=== PATIENT | male | born 1935 | race Caucasian/White ===

== ENCOUNTER 2016-04-17 05:49 | Inpatient (IN) | payer MEDICARE ==
[2016-04-17] MEDS ORDERED: NS 0.9% 1000 ML* 1,000 ML IV SCH (06:00)
--- NOTE | 2016-04-17 06:24 | ED ---
Elizabeth Jamil Erika, scribed for Onofre Mathews MD on 04/17/16 at 0601 . GI/ HPI - HPI Summary HPI Summary: Patient is an 81-year-old male brought in from [place] to the [facility] with a CC of abdominal pain starting 04/16/2016. Patient reports that he was in the car with his when he developed abdominal pain. He then became nauseated, and when he arrived home, vomited 4x. Pt was seen at [facility] and diagnosed by CT A/P with an SBO. Pt refused NG tube at [place]. Pt has a Hx SBO. En route by EMS, pt was stable, with BP of 132/73, HR of 72, RR of 18, O2 sat of 91-94% on room air. - History of Current Complaint Time Seen by Provider: 04/17/16 05:59 Stated Complaint: XFER FROM [facility] Hx Obtained From: Patient Onset/Duration: Started Hours Ago, Atraumatic, Still Present Timing: Constant Severity: Moderate Location of Pain: LUQ, LLQ Associated Signs and Symptoms: Positive: Nausea, Vomiting Alleviating Factor(s): Nothing - Additional Pertinent History Primary Care Physician: DEBORAH - Allergy/Home Medications Allergies/Adverse Reactions: Allergies Allergy/AdvReac Type Severity Reaction Status Date / Time Azithromycin [From Zithromax] Allergy Diarrhea Verified 04/26/15 06:25 Home Medications: Home Medications Donepezil TAB* [Aricept TAB*] 10 mg PO DAILY 04/17/16 [History Confirmed ] Finasteride TAB* [Proscar TAB*] 5 mg PO DAILY 04/17/16 [History Confirmed ] Rivaroxaban TAB(*) [Xarelto 20 mg] 20 mg PO DAILY 04/17/16 [History Confirmed ] Tadalafil [Cialis] 10 mg PO DAILY PRN 04/17/16 [History Confirmed 04/17/16] Triamcinolone 0.5% CREAM(NF) [Triamcinolone 0.5% CREAM*] 1 applic TOPICAL BID [History Confirmed 04/17/16] PMH/Surg Hx/FS Hx/Imm Hx Cardiovascular History: Reports: Hx Hypertension Musculoskeletal History: Reports: Hx Arthritis - OSTEOARTHRITIS Sensory History: Reports: Hx Contacts or Glasses - GLASSES Denies: Hx Hearing Aid Opthamlomology History: Reports: Hx Contacts or Glasses - GLASSES Neurological History: Reports: Other Neuro Impairments/Disorders - MEMORY LOSS - Surgical History Surgery Procedure, Year, and Place: BILATERAL FEET SURGERY,. RIGHT HAND SURGERY DUPUYTREN'S CONTRACTURE, Hx Anesthesia Reactions: No - Family History Family History: Denies FHx malignant hyperthermia, anesthesia reaction - Social History Lives: With Family Alcohol Use: Daily Alcohol Amount: WINE OR BEER Substance Use Type: Reports: None Hx Tobacco Use: Yes Smoking Status (MU): Former Smoker Type: Cigarettes Amount Used/How Often: 1 PPD Have You Smoked in the Last Year: No Review of Systems Negative: Fever Positive: Abdominal Pain, Vomiting, Nausea All Other Systems Reviewed And Are Negative: Yes Physical Exam Triage Information Reviewed: Yes Vital Signs On Initial Exam: Initial Vitals Temp Pulse Resp BP Pulse Ox 98.9 F 81 14 143/67 92 04/17/16 05:51 04/17/16 05:51 04/17/16 05:51 04/17/16 05:51 04/17/16 05:51 Vital Signs Reviewed: Yes Appearance: Positive: Well-Appearing, No Pain Distress Head/Face: Positive: Normal Head/Face Inspection Eyes: Positive: JULIA ENT: Positive: Hearing grossly normal Neck: Positive: Supple Respiratory/Lung Sounds: Positive: Clear to Auscultation, Breath Sounds Present Cardiovascular: Positive: Normal Abdomen Description: Positive: No Organomegaly, Soft, Distended - mild Bowel Sounds: Positive: Present Neurological: Positive: Sensory/Motor Intact Psychiatric: Positive: Normal Diagnostics - Vital Signs Vital Signs Temp Pulse Resp BP Pulse Ox 04/17/16 05:51 98.9 F 81 14 143/67 92 - Laboratory Result Diagrams: 04/17/16 07:00 04/17/16 07:00 Lab Statement: Any lab studies that have been ordered have been reviewed, and results considered in the medical decision making process. GIGU Course/Dx - Diagnoses Provider Diagnoses: SBO (small bowel obstruction) - Physician Notifications Instructed by Provider To: Admit As Inpatient Discharge - Discharge Plan Condition: Fair Disposition: ADMITTED TO [facility] documentation as recorded by the Elizabeth venegas Erika accurately reflects the service I personally performed and the decisions made by Bisi hall David, MD.
[2016-04-17 07:14] LABS: Hematocrit 38 % (42-52); Mean Corpuscular HGB Conc 34 g/dl (31-36); Mean Corpuscular Hemoglobin 32 pg (27-31); Mean Corpuscular Volume 94 fL (80-94); Mean Platelet Volume 9 um3 (7.4-10.4); Red Blood Count 4.05 10^6/ul (4.0-5.4); Red Cell Distribution Width 16 % (10.5-15); White Blood Count 8.5 10^3/ul (3.5-10.8)
[2016-04-17] MEDS ORDERED: Ondansetron INJ* 2 MG/ML VIAL IV PRN (07:31)
[2016-04-17 08:26] LABS: Albumin 3.4 g/dL (3.2-5.2); Calcium 7.9 mg/dL (8.6-10.3); EGFR African American 116.3 (>60); EGFR Non-African American 90.4 (>60); Globulin 2.1 g/dL (2-4); Potassium 3.4 mmol/L (3.5-5.0); Total Bilirubin 0.4 mg/dL (0.2-1.0); Total Protein 5.5 g/dL (6.4-8.9)
[2016-04-17] MEDS ORDERED: Morphine INJ* 2 MG/ML 1 ML CARPUJECT IV PRN ×2 (09:30)
[2016-04-17] MEDS: NS 0.9% w/ 20 Meq KCL 1000 ML* 1,000 ML IV SCH ×2 (09:49→19:48)
[2016-04-17] MEDS ORDERED: Acetaminophen TAB* 325 MG PO PRN (11:28)
[2016-04-17 12:10] LABS: C Reactive Protein 14.62 mg/L (< 5.00)
[2016-04-17] MEDS: Pantoprazole IV* 40 MG IV SCH (13:11)
[2016-04-17] MEDS: Heparin VIAL(*) 5000 UNITS/ML VIAL (FIVE THOUSAND) SUBCUT SCH ×2 (13:12→22:19)
[2016-04-17] MEDS: KCL 10 MEQ/50 ML IVPREMIX* 10 MEQ/50 ML BAG IV SCH ×3 (13:12→15:44)
--- NOTE | 2016-04-17 16:59 | HP ---
HISTORY AND PHYSICAL: DATE OF ADMISSION: 04/17/16 PRIMARY CARE PROVIDER: Dr. Eason. ATTENDING PHYSICIAN WHILE IN THE HOSPITAL: Dr. Dixon Sahu *(report dictated by Vaibhav Beverly NP) CONSULTING SURGEON: Dr. Beaver. CHIEF COMPLAINT: 1. Nausea. 2. Vomiting. 3. Generalized abdominal pain. HISTORY OF PRESENTING ILLNESS: Mr. Mueller is an 81-year-old male patient who has a history of hypertension, AFib, PE after surgery, history of SBO in the past, history of mild dementia, and pancreatitis, comes in to the hospital today after being transferred from [facility] for complaints of nausea, vomiting, and abdominal discomfort. Says he was on his way to a wake in [place] when he noticed by the time he got to [place], he was feeling very nauseated. He was having diffuse abdominal discomfort. He turned around and went home because he felt that he could not make to wake, so he went home, he got back to his shop, and he started vomiting. This was in the mid afternoon time. He vomited several times. He continued to vomit throughout the evening and in the early nighttime hours. His got home around 9:30 and saw that he was vomiting up some brown type discolored vomit. She was concerned because the symptoms were very similar to his previous episode with an SBO and so he decided to come into the ER at [place] and then he was transferred here for surgical evaluation. The patient denies having any recent fevers, denies having any diarrhea. Says the morning before this happened yesterday, he was up taking off Rajeev lights. He did not have any chest pain. He had no shortness of breath. No fevers recently. He has had no respiratory symptoms or any URI symptoms and he had no abdominal symptoms prior to yesterday as well. Again, he was evaluated, found to have that SBO and he was transferred to the hospital and we were asked to evaluate for admission. PAST MEDICAL HISTORY: Significant for: 1. Hypertension. 2. AFib. 3. History of PE. 4. SBO. 5. Dementia. 6. Pancreatitis. PAST SURGICAL HISTORY: He has had a total knee replacement. MEDICATIONS: Home medications include: 1. Naproxen 220 mg p.o. daily as needed. 2. Cialis 10 mg daily as needed. 3. Proscar 5 mg daily. 4. Xarelto 20 mg daily. 5. Aricept 10 mg daily. 6. Cod liver oil 1 capsule daily. 7. Cardizem 360 mg p.o. daily. 8. Aspirin 81 mg daily. 9. Triamcinolone cream 1 application topically b.i.d. ALLERGIES TO MEDICATIONS: ERYTHROMYCIN. FAMILY HISTORY: His mother at the age of 96, father had a history of CVA. SOCIAL HISTORY: He is a former smoker. He does drink 1 to 2 glasses of wine daily. He is , has children. Surrogate decision maker is his , Ольга. REVIEW OF SYSTEMS: There is no documented fever. He denied having any significant weight change. There was no double vision. There is no ear discharge. There is no rhinorrhea. There is no sore throat, no thyroid enlargement. He denies having any chest discomfort. There is no abdominal pain currently, that was prior. There was no orthopnea or nocturnal dyspnea. There was nausea and vomiting. No dysuria. No frequency. He had no loss of consciousness, no pruritus, and no skin ulcerations. Review of 14 systems completed, all others negative. PHYSICAL EXAMINATION GENERAL: At this time, Mr. Mueller is an 81-year-old male patient, who appears well-nourished and well-developed. He does not appear to be in any acute distress. He is sitting in the surgical bed. VITAL SIGNS: Reveals blood pressure of 110/85, pulse is 69, respirations 18, O2 sat 95%, and temperature 98.3. HEENT: Head is atraumatic and normocephalic. Eyes: EOMs are intact. Sclerae anicteric and not pale. Throat: Oral mucosa appears to be moist. No oropharyngeal erythema. NECK: Supple. LUNGS: Clear to auscultation bilaterally. No wheezes, rales, or rhonchi. HEART: Sounds S1 and S2. Regular rate and rhythm. No murmurs, rubs, or gallops. ABDOMEN: Soft, it was flat. It is nontender at this point. Bowel sounds were hypoactive. EXTREMITIES: Pulses 2+ throughout. Able to move all 4 extremities with 5/5 strength. NEUROLOGIC: He is awake, alert, and oriented x3. No gross focal deficits. SKIN: Intact. DIAGNOSTIC STUDIES/LAB DATA: Today revealed a WBC of 8.5, RBC of 4.05, hemoglobin 13.0, hematocrit 38, platelet count of 188. Sodium is 140, potassium is 3.4, chloride of 104, bicarb 29, BUN 18, creatinine of 0.82, glucose 125, calcium 7.9. AST 12, ALT 12, alk phos 50. Albumin 3.4. He did have an EKG obtained as well today which showed a normal sinus rhythm, rate of 79, did have a PAC, but no ST elevations or T-wave inversions were noted. He had imaging at [place], I have the report, with an impression findings suggestive of obstruction of the proximal small bowel with marked distention of the duodenal sweep. Old medical records reviewed. ASSESSMENT AND PLAN: Mr. Mueller is an 81-year-old male patient coming into the hospital today from [facility] in transfer for complaints of nausea and vomiting, now found to have small bowel obstruction. He will be admitted under inpatient status for: 1. Small bowel obstruction. Etiology is unclear. He has never had procedures before. At this point, he is no longer having any nausea or vomiting and appears to be stable. I think we can hold off an NG tube. His abdominal exam appears to be fairly benign, but I will have Surgery evaluate the patient. If he should have any more nausea or vomiting, then I will consider putting the NG tube in. At this point, we will await surgical evaluation, may need to consider GI evaluation as he again has never had any abdominal surgeries, may be beneficial to do an upper GI series possibly, but again I will wait for surgical input and evaluation. 2. Atrial fibrillation, he is in sinus rhythm currently. I am going to hold off on the Xarelto for the time being and he is in sinus rhythm. When he is able to take p.o., we will restart his diltiazem. 3. History of pulmonary embolism. He will be on heparin subcu. 4. History of dementia. Continue with supportive care. 5. History of pancreatitis. Not an active issue. 6. DVT prophylaxis, he is high risk. He has been placed on SCDs and heparin subcu. 7. Code status, full code. 8. Fluids, electrolytes, and nutrition. He is n.p.o. for the time being. He does have normal saline going out 100 an hour. I will continue this and I will replace his potassium. TIME SPENT: On admission 60 minutes, greater than half the time [id number] with the patient obtaining my history and physical, other half the time spent going over the plan of care with the patient and implementing the plan of care. I did discuss the plan of care with my attending, Dr. Sahu; he is in agreement. VAIBHAV BEVERLY NP CC: Dr. Eason; Dr. Beaver * [id number]/CPS #: [id number] MTDD
--- NOTE | 2016-04-17 23:00 | CONS ---
CONSULTATION REPORT: DATE OF CONSULT: 04/17/16 ATTENDING PHYSICIAN: Onofre Beaver MD REASON FOR CONSULTATION: Small-bowel obstruction. HISTORY OF PRESENT ILLNESS: The patient is an 81-year-old male, who began to notice some severe nausea and abdominal discomfort coming back from a wake in [place] yesterday. He vomited at home with coffee-ground dark brown emesis, his reports possibly some blood in it. The patient denies any NSAID use but does take an aspirin and is on anticoagulation with Xeralto. He had a CT scan at that time, which demonstrated a proximal small bowel obstruction at the level of the duodenum. The patient was noted to have projectile vomitus and felt significantly better after vomiting. The patient reports he had a similar episode he believes in February 2016 with complaints of a very similar episode of severe nausea, vomiting and was diagnosed and admitted with a small bowel obstruction, which was self-limited and relieved with NG tube decompression. He reports the obstruction point was near the belly-button. He did not require surgery for this. He believes he has another episode now. His last bowel movement was at 10 a.m. yesterday and he has not passed gas since then. He denies any fever or chills. He denies any current nausea or vomiting. Denies any chest pain or shortness of breath. He says he could probably eat something right now. When talking with his , she notes that he almost every day after lunch reports "I ate too much." The patient says he eats fairly large meals but the disagrees. He has some discomfort, which will gradually resolve. He has never had an endoscopy and had a colonoscopy maybe 10 or 20 years ago; his primary care physician instructed he does not need another colonoscopy. PAST MEDICAL HISTORY: Bilateral PEs, currently on Xarelto, atrial fibrillation , skin cancer on right lower leg, history of small-bowel obstruction as noted above. He had right knee replacement, bilateral foot surgeries. CURRENT MEDICATIONS: Please refer to history and physical. ALLERGIES: He has diarrhea with AZITHROMYCIN. FAMILY HISTORY: Dad had stroke. Mom was fairly healthy, lived into her 90s. Brother from alcohol related issues. The patient denies family history of reaction to anesthesia or bleeding disorder. 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 He quit smoking 30 years ago and smoked 1 to 2 packs a day from his teens to his 50s. He drinks alcohol probably a couple of drinks a day. Functional status: He exercises regularly and goes to the gym. REVIEW OF SYSTEMS: General: He has had a fair amount of decreased energy since being diagnosed with PE earlier this year. He had knee surgery he thinks in June and then developed a bilateral PE related to this. He does report some weight loss, he was down to 150 from 177, he is currently measured at 170. Cardiovascular: Positive for AFib. He does exercise regularly. Genitourinary : He gets up about 3 times a night to urinate and sees a urologist and is on multiple urologic-related medications. Denies any kidney stones, any kidney problems, bladder problems, prostate problems, UTIs. GI: He has never had any problems with diarrhea or constipation, never had any abdominal surgery or other small-bowel obstructions, hernias. Endocrine: Denies any diabetes or thyroid problems. Musculoskeletal: He had a right knee replacement. Neurologic: Denies any tingling, burning, numbness, or weakness. Psychologic: Denies any psychological problems. Hematologic: He does bruise quite easily related to Xarelto use. Infectious Disease: Denies any recent infection or others sick around him. PHYSICAL EXAM: The patient is a fairly well-appearing older male lying in bed in no acute distress. Vital Signs: Temperature 98.0, pulse 62, respiratory rate 18, O2 sat 92% on room air, blood pressure 124/59. HEENT: Normocephalic, atraumatic. No scleral icterus. Trachea midline. Cardiovascular: Regular rate and rhythm. No appreciable murmurs, rubs, or gallops. Lungs: Clear to auscultation bilaterally. No wheezing, rhonchi, or rales. Abdomen: Soft, thin , nondistended. Hyperactive bowel sounds throughout. Mild tenderness to palpation in right and left lower quadrants and possibly periumbilically. No guarding, no rebound. No masses, no organomegaly. Nontender to deep palpation of the upper abdomen. Skin: He has a 2 cm x 2 cm raised fixed nodule of the right lateral calf. There is another lesion inferior to this. Again, it is nodular in appearance, fixed. There is some central necrosis to the larger of these and some mild pain to palpation. No evidence of erythema or cellulitis. IMAGING: CT scan from [facility] on 04/17/16: Stomach appears distended by retained fluid and gas. There also appears to be distention of the duodenal sweep proximal to the third portion of the duodenum. Small stable right renal cyst is seen. No oral contrast was tolerated. LABS: Hemoccult is positive. Hgb 13.0, HCT 38, WBC 8.5, Neut % 82.7, CRP 14.62 ASSESSMENT AND PLAN: The patient is an 81-year-old male admitted with a proximal small-bowel obstruction likely in the duodenum. I would recommend a consultation with GI for a possible upper endoscopy, especially in light of his coffee-ground emesis. Currently he is not feeling nauseous or bloated, therefore we will defer NG tube placement until he develops symptoms. He does not have a surgical abdomen currently. We will continue him on IV fluids. This may be a self-limited episode given his previous history of this. Skin cancer. I discussed with the patient his followup plan for this and he is going to see a floral designer salesperson in June. I recommended since he is now having some symptoms that he may benefit from earlier therapy and he can follow up with the [facility] office as an outpatient for this. We will recheck labs in the morning & plan to obtain an upper GI study. AKIN MICHAELS CC: Dr. Cruz Kwok; Dr. Ade Eason; Dr. Beaver * [id number]/[facility] #: [id number] [facility]
[2016-04-18] MEDS: Heparin VIAL(*) 5000 UNITS/ML VIAL (FIVE THOUSAND) SUBCUT SCH ×3 (05:50→21:15)
[2016-04-18] MEDS: NS 0.9% w/ 20 Meq KCL 1000 ML* 1,000 ML IV SCH (05:55)
[2016-04-18 08:10] LABS: Hematocrit 37 % (42-52); Hemoglobin 12.5 g/dl (14.0-18.0); Mean Corpuscular HGB Conc 34 g/dl (31-36); Mean Corpuscular Hemoglobin 32 pg (27-31); Mean Corpuscular Volume 95 fL (80-94); Mean Platelet Volume 9 um3 (7.4-10.4); Red Cell Distribution Width 16 % (10.5-15); White Blood Count 6.4 10^3/ul (3.5-10.8)
[2016-04-18 08:22] LABS: BUN/Creatinine Ratio 15.1 (8-20); Calcium 7.8 mg/dL (8.6-10.3); EGFR African American 100.5 (>60); EGFR Non-African American 78.2 (>60); Potassium 4.2 mmol/L (3.5-5.0)
--- NOTE | 2016-04-18 10:11 | RAD ---
HISTORY: Vomiting, SMA syndrome, proximal duodenal obstruction, hematemesis COMPARISONS: Outside CT dated April 17, 2016 TECHNIQUE: A double contrast fluoroscopic study was performed of the esophagus and upper GI tract. Effervescent granules and thin and thick liquid barium were administered under fluoroscopic observation. Multiple digital spot images were obtained. Total fluoroscopy time is 1.6 minutes. FINDINGS: COREROOM FOUNDRY LABORER: There is a nonspecific bowel gas pattern. Oral contrast is noted in the distal colon. Degenerative changes are noted of the spine. ESOPHAGUS: The esophagus is normal in contour, course, and caliber. There is no stricture or web. Contrast passes easily through the gastroesophageal junction into the stomach. There are occasional tertiary nonpropulsive contractions. STOMACH: The stomach is normally distensible. There is a normal gastric mucosal pattern, without ulceration or filling defect. Contrast passes easily through the pylorus into the duodenum. No reflux was elicited on the current examination. DUODENUM: There is a 2 cm diverticulum of the second stage of the duodenum. The duodenal dilatation noted on the previous examination is not evident on the current examination. The fourth stage of the duodenum does not cross to the left of midline. SMALL BOWEL: The visualized portions small bowel is unremarkable. IMPRESSION: DEGENERATIVE DIVERTICULA. MILD PRESBYESOPHAGUS. THE DUODENAL DILATATION NOTED ON THE PREVIOUS CT EXAMINATION IS NOT EVIDENT ON THE CURRENT EXAMINATION. THE PREVIOUS CT EXAMINATION HAS FEATURES SUGGESTIVE OF MIDGUT VOLVULUS. THE FOURTH STAGE OF THE DUODENUM DOES NOT CROSS MIDLINE WHICH MAY INDICATE THE PRESENCE OF SOME DEGREE OF MALROTATION CPT II Codes: 6045F
[2016-04-18] MEDS: Pantoprazole IV* 40 MG IV SCH (14:10)
--- NOTE | 2016-04-18 14:10 | PN ---
Progress Note - Progress Note SOAP: Subjective: Feeling well today no abdominal pain since admission hungry- having clears for lunch no nausea/ vomiting passing sm amt of flatus, no BM ambulating w/o difficulty Objective: A&O answers question appropriately, VSS, afebrile Heart: RRR no m/r/g Lungs: CTA julito throughout besides R middle lobe- some crackles Abd: Soft, non-distended ++BS throughout non-tender to palpation throughout no guarding/rebound Extr: calves NT to palpation, no erythema or swelling R leg tumor to lateral calf Vital Signs Temp 97.6 F 04/18/16 12:09 Pulse 59 04/18/16 12:09 Resp 18 04/18/16 12:09 BP 141/69 04/18/16 12:09 Pulse Ox 96 04/18/16 12:09 Intake & Output 04/17/16 04/18/16 04/18/16 18:59 06:59 18:59 Intake Total 659 2063 Output Total 300 175 Balance 659 1763 -175 Weight 170 lb Intake: IV Fluids 495 1947 NS 20K 1947 IVPB 164 116 Potassium 2 gram 164 116 Oral 0 0 Output: Urine 300 175 Other: Estimated Void Large Small # Voids 1 1 UGI Study 04/18: No obstruction, appearance of midgut volvulus on CT scan from prior day Assessment/ Plan: Pt is an 81 yo M who presented with a proximal SBO (duodenum) . His obstruction has since resolved as demonstrated on upper GI study this am. His pain and N/V have self-resolved. He possibly has an intermittent volvulus vs SMA syndrome (less likely because the duodenum does not appear to pass behind the SMA on CT scan). Begin clear liquids NPO after MN con't IVF plan for endoscopy 04/19, appreciate GI input to review CT scan/ imaging with radiology Con't to [facility]
--- NOTE | 2016-04-18 19:57 | CONS ---
CONSULTATION REPORT: DATE OF CONSULTATION: 04/18/16 REASON FOR CONSULTATION: Abdominal pain, bowel obstruction, nausea, vomiting. NARRATIVE: Mr. Mueller is an 81-year-old gentleman with a history of mild dementia and atrial fibrillation. He presented acutely with abdominal pain and repeated episodes of nausea and vomiting. This occurred after coming back from a wake in [place]. His symptoms developed rather suddenly. He had significant amount of vomiting and presented to the [facility] where he had a CT scan, which demonstrated evidence of an obstruction at the level of the duodenum. He was transferred to our facility. By the following day this morning, he states that he is now asymptomatic. He is passing flatus but has not had a bowel movement. He states that he had a very similar episode years back and was treated conservatively for a bowel obstruction. He had no abdominal surgeries. PAST MEDICAL HISTORY: Includes: 1. Mild dementia. 2. Hypertension. 3. AFib. 4. Postoperatively after an extremity surgery, he had a PE. HOME MEDICATIONS: 1. Proscar. 2. Xarelto. 3. Aricept. 4. Cardizem. 5. Baby aspirin. REVIEW OF SYSTEMS: He denies any rectal bleeding, bowel irregularities. He states that he felt well up until this point. He has had no fevers, chills, or jaundice. PHYSICAL EXAMINATION: General: He is a pleasant elderly gentleman, appearing comfortable and in no acute distress. Vital Signs: Temperature is 98.1, blood pressure is 133/62, heart rate is 63 and irregular. He is a anicteric. He is not pale. His lungs are clear. Cardiac exam reveals an irregular rhythm without murmur. Abdomen: Reveals no distension or tenderness. Bowel sounds are hypoactive, but present. There is no succussion splash. There is no organomegaly. Extremities reveal no edema. LABORATORY DATA: Include white count 6.4, hemoglobin 12.5. Normal liver panel. He also underwent a CAT scan of the abdomen, which I did review, demonstrating dilated stomach and duodenum to the 3rd to 4th portion. He has a question of volvulus perhaps or an intussusception in the mid gut. He also underwent an upper GI series today, which was essentially unremarkable. IMPRESSION: An 81-year-old gentleman with recurrent small bowel obstruction in the mid gut, perhaps in the duodenum. I did review his CAT scan and there is a question of a volvulus or an intussusception. It does seem to have resolved. We were planning on performing an upper endoscopy today to better view luminally any abnormality but the patient unfortunately did have a GI series, which precluded that to being done today and will pursue that tomorrow. The surgical service has been involved. CC: Dr. Eason* [id number]/[facility] #: [id number] MTDD
--- NOTE | 2016-04-18 21:57 | PN ---
Subjective Date of Service: 04/18/16 Interval History: . doing ok today no NGT - actually + appetite GI saw patient and reviewed upper GI study - will go EGD tomorrow, given barium use today. clears in the meantime holding [facility] Surgery teams and involved. Family History: Unchanged from Admission Social History: Unchanged from Admission Past Medical History: Unchanged from Admission Objective Active Medications: . Acetaminophen (Tylenol Tab*) 650 mg PO Q4H PRN PRN Reason: FEVER/PAIN Heparin Sodium (Porcine) (Heparin Vial(*)) 5,000 units SUBCUT Q8HR [facility] Last Admin: 04/18/16 21:15 Dose: 5,000 units Potassium Chloride/Sodium Chloride (Ns 0.9% W/ 20 Meq Kcl 1000 Ml*) 1,000 mls @ 100 mls/hr IV PER RATE [facility] Last Admin: 04/18/16 05:55 Dose: 100 mls/hr Morphine Sulfate (Morphine Inj (Syringe)*) 2 mg IV Q4H PRN PRN Reason: PAIN - MODERATE TO SEVERE Ondansetron HCl (Zofran Inj*) 4 mg IV Q4H PRN PRN Reason: NAUSEA Last Admin: 04/17/16 08:17 Dose: 4 mg Pantoprazole Sodium (Protonix Iv*) 40 mg IV Q24H [facility] Last Admin: 04/18/16 14:10 Dose: 40 mg . Vital Signs 04/17/16 04/17/16 04/18/16 22:25 23:29 01:06 Temperature 98.1 F Pulse Rate 63 Respiratory 16 16 Rate Blood Pressure 133/64 (mmHg) O2 Sat by Pulse 94 95 Oximetry 04/18/16 04/18/16 04/18/16 03:36 07:36 08:00 Temperature 97.6 F 97.9 F Pulse Rate 60 63 Respiratory 16 18 16 Rate Blood Pressure 129/58 145/69 (mmHg) O2 Sat by Pulse 92 96 94 Oximetry Oxygen Devices in Use Now: Nasal Cannula Appearance: elderly / good spirits Eyes: No Scleral Icterus Ears/Nose/Mouth/Throat: Clear Oropharnyx Neck: Trachea Midline Respiratory: Symmetrical Chest Expansion and Respiratory Effort Cardiovascular: NL Sounds; No Murmurs; No JVD Abdominal: - - soft, NT + BS Lymphatic: No Cervical Adenopathy Extremities: No Edema Skin: No Rash or Ulcers Neurological: Alert and Oriented x 3 Lines/Tubes/Other Access: Clean, Dry and Intact Peripheral IV Nutrition: Taking PO's Result Diagrams: 04/18/16 07:30 04/18/16 07:30 Assess/Plan/Problems-Billing . Assessment: 81 yo man with upper GI SBO - now seems to have resolved. Older radiology tests in similar situation are suggestive for previous volvulus. EGD tomorrow with GI On clears // NPO after MN Holding Anticoagulation gentle IVF. PPI DVT PPX
[2016-04-19] MEDS: NS 0.9% w/ 20 Meq KCL 1000 ML* 1,000 ML IV SCH ×2 (04:03→21:33)
[2016-04-19] MEDS: Heparin VIAL(*) 5000 UNITS/ML VIAL (FIVE THOUSAND) SUBCUT SCH ×3 (05:52→21:32)
--- NOTE | 2016-04-19 08:46 | PN ---
Subjective Date of Service: 04/19/16 Interval History: Pt is feeling well. He is anxious to get the endoscopy done so h e can eat. He denies any N/V/abdominal pain. He has still not had a BM but has been passing flatus. Objective Active Medications: Acetaminophen (Tylenol Tab*) 650 mg PO Q4H PRN PRN Reason: FEVER/PAIN Heparin Sodium (Porcine) (Heparin Vial(*)) 5,000 units SUBCUT Q8HR [facility] Last Admin: 04/19/16 05:52 Dose: 5,000 units Potassium Chloride/Sodium Chloride (Ns 0.9% W/ 20 Meq Kcl 1000 Ml*) 1,000 mls @ 100 mls/hr IV PER RATE [facility] Last Admin: 04/19/16 04:03 Dose: 100 mls/hr Morphine Sulfate (Morphine Inj (Syringe)*) 2 mg IV Q4H PRN PRN Reason: PAIN - MODERATE TO SEVERE Ondansetron HCl (Zofran Inj*) 4 mg IV Q4H PRN PRN Reason: NAUSEA Last Admin: 04/17/16 08:17 Dose: 4 mg Pantoprazole Sodium (Protonix Iv*) 40 mg IV Q24H [facility] Last Admin: 04/18/16 14:10 Dose: 40 mg Vital Signs 04/18/16 04/18/16 04/18/16 12:09 15:24 18:12 Temperature 97.6 F 98.1 F Pulse Rate 59 63 Respiratory 18 16 16 Rate Blood Pressure 141/69 133/62 (mmHg) O2 Sat by Pulse 96 94 Oximetry 04/18/16 04/18/16 04/19/16 19:25 23:30 03:30 Temperature 97.5 F 97.9 F 98.1 F Pulse Rate 74 66 49 Respiratory 16 16 16 Rate Blood Pressure 139/56 134/65 104/52 (mmHg) O2 Sat by Pulse 93 95 92 Oximetry 04/19/16 04/19/16 07:34 07:42 Temperature 97.8 F Pulse Rate 56 Respiratory 18 18 Rate Blood Pressure 137/72 (mmHg) O2 Sat by Pulse 95 Oximetry Oxygen Devices in Use Now: None Appearance: Elderly male sitting up in bed, NAD Eyes: No Scleral Icterus Ears/Nose/Mouth/Throat: Mucous Membranes Moist Respiratory: Symmetrical Chest Expansion and Respiratory Effort, Clear to Auscultation - few coarse bibasilar crackles Cardiovascular: NL Sounds; No Murmurs; No JVD, RRR, No Edema Abdominal: NL Sounds; No Tenderness; No Distention Extremities: No Clubbing, Cyanosis Skin: No Rash or Ulcers, No Nodules or Sclerosis Neurological: Alert and Oriented x 3 Result Diagrams: 04/18/16 07:30 04/18/16 07:30 Assess/Plan/Problems-Billing Mr Mueller is an 81 yo M who has a h/o HTN, afib, mild dementia and past h/o SBO who presented to [place] [facility] initially with c/o N/V and abdominal pain and was found to have a proximal small bowel obstruction and was [place] [facility]. - Patient Problems (1) Small bowel obstruction Current Visit: Yes Status: Acute Code(s): K56.69 - OTHER INTESTINAL OBSTRUCTION SNOMED Code(s): 910172689 Comment: Etiology of the SBO is not completely clear but suspected to be related to possible midgut volvulus or intussuception (questioned on CT imaging ) as he has never had any abdominal surgeries. His SBO has resolved at this point. Plan is for EGD today. If EGD without any significant findings will start diet back. He had been tolerating clears yesterday. (2) Afib Current Visit: Yes Status: Chronic Code(s): I48.91 - UNSPECIFIED ATRIAL FIBRILLATION SNOMED Code(s): 58865517 Comment: He is in NSR. Xarelto and diltiazem have been on hold given his previous NPO status. If EGD ok will plan on starting xarelto but continue to hold diltiazem as his HR is low normal to bradycardic currently. (3) Hypertension Current Visit: Yes Status: Acute Code(s): I10 - ESSENTIAL (PRIMARY) HYPERTENSION SNOMED Code(s): 00587957 Comment: BP is under good control without the diltiazem. Continue to monitor. (4) DVT prophylaxis Current Visit: No Status: Acute Code(s): JTE7487 - SNOMED Code(s): 457173965 Comment: SQ heparin until xarelto resumed. (5) Full code status Current Visit: Yes Status: Acute Code(s): Z78.9 - OTHER SPECIFIED HEALTH STATUS SNOMED Code(s): 839408576
[2016-04-19] MEDS: Pantoprazole IV* 40 MG IV SCH (12:05)
[2016-04-19] MEDS ORDERED: Midazolam* 1 MG/ML 10 ML VIAL (10 MG) ONE (12:40)
[2016-04-19] MEDS ORDERED: fentaNYL* 50 MCG/ML 2 ML VIAL (100 MCG VIAL) ONE ×2 (12:40→17:14)
[2016-04-19] MEDS ORDERED: ceFAZolin 2 GM PREMIX (*) 2 GM/50 ML BAG IVPB ONE ×2 (15:55→15:56)
[2016-04-19] MEDS ORDERED: Bupivacaine 0.25% EPI 200,000* 30 ML SDV ONE (16:05)
[2016-04-19] MEDS ORDERED: Succinylcholine* 20 MG/ML 10 ML VIAL ONE (16:21)
[2016-04-19] MEDS ORDERED: Propofol* 10 MG/ML 20 ML BTL IV PUSH ONE ×2 (16:21→16:23)
[2016-04-19] MEDS ORDERED: nitroGLYCERIN IV VIAL* 5 MG/ML VIAL ONE (17:04)
[2016-04-19] MEDS ORDERED: Labetalol IV* 5 MG/ML 20 ML VIAL ONE (17:11)
[2016-04-19] MEDS ORDERED: Rocuronium* 10 MG/ML VIAL ONE (17:20)
[2016-04-19] MEDS ORDERED: Neostigmine Methylsulfate* 2 MG/2 ML SYRINGE ONE (17:20)
[2016-04-19] MEDS ORDERED: Glycopyrrolate IV* 0.2 MG/ML 1 ML VIAL ONE (17:20)
[2016-04-19] MEDS ORDERED: oxyCODONE/Acetamin 5/325 MG* TAB PO PRN (17:54)
[2016-04-19] MEDS ORDERED: DiMENhydriNATE IV* 50 MG/ML VIAL IV PUSH PRN (17:56)
[2016-04-19] MEDS ORDERED: fentaNYL* 50 MCG/ML 2 ML VIAL (100 MCG VIAL) IV PRN (17:56)
[2016-04-19] MEDS ORDERED: Morphine INJ* 2 MG/ML 1 ML CARPUJECT IV PRN (18:01)
[2016-04-20] MEDS: Heparin VIAL(*) 5000 UNITS/ML VIAL (FIVE THOUSAND) SUBCUT SCH (06:41)
--- NOTE | 2016-04-20 08:18 | PRO ---
PROCEDURE REPORT: DATE OF PROCEDURE: 04/19/16 REFERRING PHYSICIAN: Dr. Sahu. PROCEDURE: EGD. INDICATION: Small bowel obstruction, question of duodenal torsion. MEDICATIONS GIVEN: 1. No Demerol. 2. Versed 6 mg IV. DESCRIPTION OF PROCEDURE: After the EGD procedure including the risks, benefits , and alternatives not limited to perforation, surgery, and/or were explained to the patient, written consent was then obtained. IV medication was given and a bite-block was placed between the teeth. An Olympus gastroscope was then inserted into the patient's mouth, advanced down the esophagus, into the stomach, into the distal duodenum. In the esophagus at the GE junction, the Z-line was intact. No erosive esophagitis, stricture, or ring was seen. He does have a small hiatal hernia. Scope was advanced through the hiatal hernia sac into the body of the stomach. Retroflex view was unremarkable. Forward view also was unremarkable. An H. pylori biopsy was obtained. Scope was advanced through a widely patent pylorus into the duodenal bulb and into the third, potentially the fourth, portion of the duodenum. No abnormalities were seen. Mucosa appeared normal. There appeared to be no change in the caliber of his lumen. The scope was then withdrawn from the patient. He tolerated the procedure well and was returned to the recovery room in stable condition. IMPRESSION: 1. Complete upper endoscopy into the distal duodenum with biopsies. 2. Normal upper endoscopy except for a small duodenal diverticulum in the second portion of the duodenum. 3. These findings were conveyed to the surgical team. CC: Dr. Beaver; Ade Eason MD* [id number]/[facility] #: [id number]
[2016-04-20 08:53] VITALS: BP 143/66
[2016-04-20] MEDS ORDERED: Rivaroxaban TAB(*) 20 MG TAB PO SCH (10:00)
--- NOTE | 2016-04-20 11:28 | PN ---
Progress Note - Progress Note SOAP: Subjective: awake and alert,denies pain,robbi clears,no nausea;passing flatus;walked in halls ;no dysuria [] Objective:lungs:clear bilat heart:RRR no m/r/g abd:+bs,soft,incisions intact with steristrips,no erythema LE no edema,nontender [] Vital Signs Temp 97.9 F 04/20/16 07:51 Pulse 54 04/20/16 07:51 Resp 17 04/20/16 07:51 BP 143/66 04/20/16 07:51 Pulse Ox 96 04/20/16 08:59 Intake & Output 04/19/16 04/20/16 04/20/16 18:59 06:59 18:59 Intake Total 650 2109 Output Total 1300 780 300 Balance -650 1329 -300 Intake: IV Fluids 650 996 LR 600 NS 20K 996 NS 50ML, Cefazolin 2G 50 Oral 0 1113 Output: Urine 1300 780 300 Other: Estimated Void Medium # Bowel Movements 0 # Voids 1 Laboratory Tests 04/18/16 04/18/16 07:30 07:30 Hgb 12.5 L Hct 37 L Creatinine 0.93 Assessment:doing well 1 day s/p dx lap and enteropexy [] Plan:disch home,followup appts scheduled with Dr Beaver in [place] and PCP Nupur Moya resumed today,disch instructions reviewed with patient and []
--- NOTE | 2016-04-20 16:31 | OP ---
DATE OF OPERATION: 04/19/16 - ROOM #[id number] DATE OF : 37 SURGEON: Onofre Beaver MD SOCIAL SERVICES DIRECTOR: Marjorie Bahena NP ANESTHESIOLOGIST: Dr. Costello. ANESTHESIA: General anesthetic, local infiltration. PRE-OP DIAGNOSIS: Small bowel torsion. 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 OPERATIVE PROCEDURE: Diagnostic laparoscopy with enteropexy. DESCRIPTION OF PROCEDURE: The patient supine on the operating table after adequate general anesthetic compression stockings, Meme Hugger warmer, intravenous antibiotics. The abdomen was prepped with antiseptic and draped in a sterile fashion. Small umbilical incision was created and a blunt port cannula was placed and insufflation was carried out with carbon dioxide. Additional cannulae 5 mm infraumbilical and left mid abdomen were placed through small stab wounds under direct vision. The liver and transverse and right colon all looked normal. The stomach looked normal. The small bowel was identified at the cecum and followed all the way back to the proximal jejunum. It appeared that the bowel was somewhat looped under itself but easily allowed me to pull it out. The jejunum had multiple diverticula, the largest of which appeared to be to maybe 8 cm across and the others were maybe 4 to 5 cm across. There were at least 3 or 4 such diverticula of the jejunum. There was on diverticulum the largest which was maybe 5 to 8 cm beyond the duodenum and was felt that maybe the diverticulum was causing this to torse over and cause the obstruction. Therefore, it was decided that enteropexy will be carried out. The jejunum from where it emerged from the retroperitoneum up to the base of this diverticulum was sutured to the distal transverse colon thereby preventing it from torsing over this also closed space so there was not any gap into which bowel could herniate. Everything was in good condition. The cannula removed. Pneumoperitoneum was allowed to escape. Umbilical fascia was closed with 0 Polysorb and the skin with 5-0 Polysorb followed by Steri-Strips. He tolerated the procedure well and was brought to recovery in good condition. There were no complications, no drains. No pathologic specimens. Sponge and instrument counts correct. Estimated blood loss is almost nil. CC: Onofre Beaver MD; Dr. Ade Eason; Dr. Dequan Juarez.* [id number]/[facility] #: [id number] [facility]
--- NOTE | 2016-04-23 19:20 | DS ---
DISCHARGE SUMMARY: DATE OF ADMISSION: 04/17/16 DATE OF DISCHARGE: 04/20/16 PRINCIPAL ADMITTING DIAGNOSIS: Small bowel obstruction. HOSPITAL COURSE: The patient came to the hospital, transferred from [facility] on 04/17/16. He was found to have evidence of a very proximal bowel obstruction. Imaging was concerning for a small volvulus at the region of the distal duodenum. Upper GI series the next morning did show resolution of the obstruction, raised the question of a partial malrotation. He was feeling well and without any nausea or vomiting. He did then undergo upper endoscopy out to the distal duodenum, which was normal. He was subsequently taken to the operating room for a laparoscopy and he had multiple jejunal diverticula, the largest of which was encompassing maybe 8 cm of bowel and this was located maybe 10 cm from the distal duodenum. It was felt that this was perhaps the lead point of a volvulus. There were multiple other jejunal diverticula noted. In order to try to prevent additional volvulus, the proximal jejunum was sutured to the transverse colon up to the base of the diverticulum and back to the duodenum to avoid creation of a space. He tolerated this well and was able to tolerate oral intake postoperatively and was discharged home without difficulty. He will follow up in the office in the near future. CC: Onofre Beaver MD; Dr. Ade Eason; Dequan Juarez MD * [id number]/[facility] #: [id number] [facility]
== END 2016-04-20 11:52 | disposition home or self-care (01) | DRG 346 ==
LOC: ED 05:49 → SSU 07:30
PROVIDERS: ADMIT Internal Medicine; ATTEND Surgery
PROC: 0DB68ZX Excision of Stomach, Via Natural or Artificial Opening Endoscopic, Diagnostic (ICD-10-PCS; 2016-04-19)
PROC: 0DSA4ZZ Reposition Jejunum, Percutaneous Endoscopic Approach (ICD-10-PCS; principal; 2016-04-19 19:15)
DX: K31.5 Obstruction of duodenum (principal); I48.91 Unspecified atrial fibrillation; F03.90 Unspecified dementia, unspecified severity, without behavioral disturbance, psychotic disturbance, mood disturbance, and anxiety; K57.10 Diverticulosis of small intestine without perforation or abscess without bleeding; I10 Essential (primary) hypertension; Z86.711 Personal history of pulmonary embolism; Z79.01 Long term (current) use of anticoagulants; Z79.82 Long term (current) use of aspirin; Z79.899 Other long term (current) drug therapy; Z88.1 Allergy status to other antibiotic agents; Z87.891 Personal history of nicotine dependence; Z82.3 Family history of stroke; Z81.1 Family history of alcohol abuse and dependence; Z96.651 Presence of right artificial knee joint
CPT/HCPCS: 36415; 74246; 80048; 80053; 85025; 86140; 87077; 93005; 94760; 99283; J0330; J0690; J1644; J2250; J2405; J2704; J3010; J3480

== ENCOUNTER 2016-10-02 15:49 | Inpatient (IN) | payer MEDICARE ==
[2016-10-02 17:22] LABS: Hematocrit 41 % (42-52); Hemoglobin 13.8 g/dl (14.0-18.0); Mean Corpuscular HGB Conc 33 g/dl (31-36); Mean Corpuscular Hemoglobin 32 pg (27-31); Mean Corpuscular Volume 95 fL (80-94); Mean Platelet Volume 9 um3 (7.4-10.4); Red Blood Count 4.35 10^6/ul (4.0-5.4); Red Cell Distribution Width 16 % (10.5-15); White Blood Count 9.9 10^3/ul (3.5-10.8)
[2016-10-02] MEDS ORDERED: Ondansetron INJ* 2 MG/ML VIAL IV ONE (17:31)
[2016-10-02] MEDS ORDERED: NS 0.9% 1000 ML* 1,000 ML IV ONE (17:31)
[2016-10-02] MEDS ORDERED: Morphine INJ* 2 MG/ML 1 ML SYRINGE IV ONE (17:31)
[2016-10-02 17:37] LABS: Albumin 3.7 g/dL (3.2-5.2); BUN/Creatinine Ratio 17.9 (8-20); C Reactive Protein 11.64 mg/L (< 5.00); Calcium 8.8 mg/dL (8.6-10.3); EGFR African American 123.2 (>60); EGFR Non-African American 95.8 (>60); Globulin 2.6 g/dL (2-4); Potassium 3.9 mmol/L (3.5-5.0); Total Bilirubin 0.6 mg/dL (0.2-1.0); Total Protein 6.3 g/dL (6.4-8.9)
[2016-10-02] MEDS ORDERED: Ondansetron INJ* 2 MG/ML VIAL ONE (17:45)
[2016-10-02] MEDS ORDERED: Iohexol 300* (CONTRAST) 10 ML SDV IV ONE (18:09)
[2016-10-02] MEDS ORDERED: Morphine INJ* 4 MG/ML 1 ML SYRINGE IV ONE (18:24)
[2016-10-02] MEDS: Ondansetron INJ* 2 MG/ML VIAL IV ONE ×2 (18:28→18:56)
--- NOTE | 2016-10-02 18:51 | RAD ---
INDICATION: Abdominal pain. History of small bowel obstruction COMPARISON: CT April 17, 2016 TECHNIQUE: Axial source images were obtained from the hemidiaphragms to the symphysis pubis following administration of oral and intravenous contrast. 101 mL Omnipaque 300 was utilized. Coronal and sagittal reconstructed images were acquired. Lung bases: There is bibasilar atelectasis appearing little changed. Liver: The liver is normal in size. There are no masses. There is no ductal dilatation. Gallbladder: There are no calcified gallstones. There is no evidence of wall thickening or pericholecystic fluid. Spleen: The spleen is normal in size. There are no masses. Pancreas: There is no focal pancreatic mass or ductal dilatation. Adrenal glands: There is no evidence of adrenal mass. Kidneys: The kidneys are normal in size and position. There are prompt nephrograms and there is prompt excretion bilaterally. There is a 1 cm upper pole right renal cyst. There is no evidence of nephrolithiasis. Adenopathy: There is no evidence of adenopathy by size criteria. Fluid collections: There are no free or localized fluid collections. Vessels:There are atherosclerotic changes involving the aorta and iliac vessels. There is no focal aneurysm. The IVC appears normal. GI tract: Evaluation GI tract is limited as is the examination was performed without oral contrast. The stomach is mildly distended with an air-fluid level. There are dilated jejunal loops in left upper quadrant with scattered air-fluid levels. Loops measure up to 5 cm. There is a zone of transition in the central abdomen at the level the aortic bifurcation. The distal small bowel is decompressed. The colon is normal in caliber there are no findings of pneumatosis. There is no free intraperitoneal air. Pelvic organs: The prostate is enlarged Bladder: There are no bladder masses. Abdominal and pelvic soft tissues: The extraperitoneal abdominal and pelvic soft tissues appear normal.. Osseous structures: There are no acute osseous findings. There is degenerative disc disease at L5 L1 with a grade 1 anterolisthesis and a chronic L5 spondylolysis. Other: None IMPRESSION: DISTENDED STOMACH WITH DILATED PROXIMAL SMALL BOWEL COMPATIBLE WITH A PARTIAL SMALL BOWEL OBSTRUCTION
[2016-10-02 19:28] LABS: Urine Bilirubin Negative (Negative); Urine Glucose Negative (Negative); Urine Nitrite Negative (Negative)
[2016-10-02] MEDS ORDERED: Morphine INJ* 2 MG/ML 1 ML SYRINGE IV PRN (19:39)
[2016-10-02] MEDS ORDERED: Metoprolol Tartrate IV* 1 MG/ML 5 ML VIAL IV PRN (19:42)
[2016-10-02] MEDS: Heparin VIAL(*) 5000 UNITS/ML VIAL (FIVE THOUSAND) SUBCUT SCH (22:20)
[2016-10-02] MEDS ORDERED: PROCHLORPERAZINE INJ 5 MG/ML 2 ML VIAL IV PRN (22:24)
[2016-10-02] MEDS: NS 0.9% 1000 ML* 1,000 ML IV SCH (22:36)
[2016-10-02] MEDS ORDERED: HYDROmorphone* 1 MG/ML 1 ML SYR ONE (23:08)
--- NOTE | 2016-10-02 23:09 | ED ---
Royce Jamil Alok, scribed for Fermín Chand MD on 10/02/16 at 1847 . Abdominal Pain/Male - HPI Summary HPI Summary: 81M presents to the ED BIBA with abd pain accompanied by N/V. Pt states that yesterday he was mowing his lawn when he began to feel nauseous, attempted to rest and took Pepto Bismol with no improvement. Today pt went to see his PCP Dr. Eason in [place] when he began to feel nausea again accompanied by abd pain and nausea, causing pt PCP to sent the pt to the ED. Pt was given Phenergan shot by PCP but denies being administered anti-nausea meds by EMS. Pt denies diarrhea and last BM was this morning. PMHx includes A-fib for which he takes anti-coagulants. Pt has h/o pancreatitis. Pt denies h/o hernia. PSHx includes abd surgery by Dr. Ordoñez 6 months ago for small bowel torsion. 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 Negative: Fever, Diarrhea - Allergies/Home Medications Allergies/Adverse Reactions: Allergies Allergy/AdvReac Type Severity Reaction Status Date / Time Azithromycin [From Zithromax] Allergy Diarrhea Verified 04/26/15 06:25 Home Medications: Home Medications Diltiazem HCl Extended Release [Diltiazem HCl ER] 360 mg PO DAILY 10/02/16 [ History Confirmed 10/02/16] Fluticasone HFA 44 mcg(NF) [Flovent Hfa 44 mcg(NF)] 2 puff INH BID 10/02/16 [ History Confirmed 10/02/16] Tadalafil [Cialis] 10 mg PO DAILY PRN 10/02/16 [History Confirmed 10/02/16] PMH/Surg Hx/FS Hx/Imm Hx Endocrine/Hematology History: Reports: Hx Anticoagulant Therapy - xarelto Cardiovascular History: Reports: Hx Embolism, Hx Hypertension, Other Cardiovascular Problems/Disorders - Afib GI History: Reports: Hx Irritable Bowel History: Reports: Hx Benign Prostatic Hyperplasia Musculoskeletal History: Reports: Hx Arthritis - OSTEOARTHRITIS Sensory History: Reports: Hx Contacts or Glasses - GLASSES Denies: Hx Hearing Aid Opthamlomology History: Reports: Hx Contacts or Glasses - GLASSES Neurological History: Reports: Hx Dementia, Other Neuro Impairments/Disorders - MEMORY LOSS - Cancer History Cancer Type, Location and Year: Skin CA RLE, Face Hx Chemotherapy: No Hx Radiation Therapy: No Hx Palliative Cancer Treatment: No - Surgical History Surgery Procedure, Year, and Place: BILATERAL FEET SURGERY,. RIGHT HAND SURGERY DUPUYTREN'S CONTRACTURE, Hx Anesthesia Reactions: No Infectious Disease History: Denies: Traveled Outside the [place] in Last 30 Days - Family History Known Family History: Positive: Other - Denies FHx malignant hyperthermia, anesthesia reaction - Social History Occupation: Retired Lives: With Family Alcohol Use: Daily Alcohol Amount: 2-3 glasses of wine/ night Substance Use Type: Reports: None Hx Tobacco Use: Yes Smoking Status (MU): Former Smoker Type: Cigarettes Amount Used/How Often: 1 PPD Have You Smoked in the Last Year: No Review of Systems Negative: Fever, Chills Negative: Erythema Negative: Sore Throat Negative: Chest Pain Negative: Shortness Of Breath, Cough Positive: Abdominal Pain, Vomiting, Nausea. Negative: Diarrhea Negative: dysuria, hematuria Negative: Myalgia, Edema Negative: Rash Neurological: Other - Negative: Dizziness All Other Systems Reviewed And Are Negative: Yes Physical Exam - Summary Physical Exam Summary: Constitutional: Well-developed, Well-nourished, Alert. (-) Distressed Skin: Warm, Dry HENT: Normocephalic; Atraumatic Eyes: Conjunctiva normal Neck: Musculoskeletal ROM normal neck. (-) JVD, (-) Stridor, (-) Tracheal deviation Cardio: Rhythm regular, rate normal, Heart sounds normal; Intact distal pulses; The pedal pulses are 2+ and symmetric. Radial pulses are 2+ and symmetric. (-) Murmur Pulmonary/Chest wall: Effort normal. (-) Respiratory distress, (-) Wheezes, (-) Rales Abd: (+) Distension. Hyperactive Bowel Sounds. Musculoskeletal: (-) Edema Lymph: (-) Cervical adenopathy Neuro: Alert, Oriented x3 Psych: Mood and affect Normal Triage Information Reviewed: Yes Vital Signs On Initial Exam: Initial Vitals Temp Pulse Resp BP Pulse Ox 98.1 F 70 17 140/73 96 10/02/16 16:37 10/02/16 16:37 10/02/16 16:37 10/02/16 16:37 10/02/16 16:37 Vital Signs Reviewed: Yes - Agustin Coma Scale Coma Scale Total: 15 Diagnostics - Vital Signs Vital Signs Temp Pulse Resp BP Pulse Ox 10/02/16 17:40 22 10/02/16 16:48 62 17 140/73 95 10/02/16 16:47 62 14 95 10/02/16 16:37 98.1 F 70 17 140/73 96 - Laboratory Lab Results: Lab Results 10/02/16 10/02/16 10/02/16 Range/Units 17:13 17:13 17:13 WBC 9.9 (3.5-10.8) 10^3/ul RBC 4.35 (4.0-5.4) 10^6/ul Hgb 13.8 L (14.0-18.0) g/dl Hct 41 L (42-52) % MCV 95 H (80-94) fL MCH 32 H (27-31) pg MCHC 33 (31-36) g/dl RDW 16 H (10.5-15) % Plt Count 198 (150-450) 10^3/ul MPV 9 (7.4-10.4) um3 Neut % (Auto) 86.5 H (38-83) % Lymph % (Auto) 7.9 L (25-47) % [place] % (Auto) 5.0 (1-9) % Eos % (Auto) 0.1 (0-6) % Baso % (Auto) 0.5 (0-2) % Absolute Neuts (auto) 8.6 H (1.5-7.7) 10^3/ul Absolute Lymphs (auto) 0.8 L (1.0-4.8) 10^3/ul Absolute Monos (auto) 0.5 (0-0.8) 10^3/ul Absolute Eos (auto) 0 (0-0.6) 10^3/ul Absolute Basos (auto) 0 (0-0.2) 10^3/ul Absolute Nucleated RBC 0 10^3/ul Nucleated RBC % 0 Sodium 134 (133-145) mmol/L Potassium 3.9 (3.5-5.0) mmol/L Chloride 100 L (101-111) mmol/L Carbon Dioxide 27 (22-32) mmol/L Anion Gap 7 (2-11) mmol/L BUN 14 (6-24) mg/dL Creatinine 0.78 (0.67-1.17) mg/dL Est GFR ( Amer) 123.2 (>60) Est GFR (Non-Af Amer) 95.8 (>60) BUN/Creatinine Ratio 17.9 (8-20) Glucose 149 H (70-100) mg/dL Lactic Acid 0.9 (0.5-2.0) mmol/L Calcium 8.8 (8.6-10.3) mg/dL Total Bilirubin 0.60 (0.2-1.0) mg/dL AST 15 (13-39) U/L ALT 11 (7-52) U/L Alkaline Phosphatase 57 (34-104) U/L C-Reactive Protein 11.64 H (< 5.00) mg/L Total Protein 6.3 L (6.4-8.9) g/dL Albumin 3.7 (3.2-5.2) g/dL Globulin 2.6 (2-4) g/dL Albumin/Globulin Ratio 1.4 (1-3) Lipase 19 (11.0-82.0) U/L Result Diagrams: 10/02/16 17:13 10/02/16 17:13 Lab Statement: Any lab studies that have been ordered have been reviewed, and results considered in the medical decision making process. - CT abd/pel CT CT Interpretation: Positive (See Comments) - IMPRESSION: DISTENDED STOMACH WITH DILATED PROXIMAL SMALL BOWEL COMPATIBLE WITH A PARTIAL SMALL BOWEL OBSTRUCTION CT Interpretation Completed By: Radiologist Re-Evaluation - Re-Evaluation First Eval Re-Evaluation Time: 18:24 Change: Worse Comment: Patient is getting pain after ingestion of IV contrast. Abdominal Pain Fem Course/Dx - Course Assessment/Plan: Discussed patient care with Dr. Torrez (Surgery) @ 2047 - Made aware of pt condition and admittance to [facility] - Diagnoses Provider Diagnoses: Small bowel obstruction - Provider Notifications Discussed Care Of Patient With: Liseth Stovall - Will admit pt to [facility] Time Discussed With Above Provider: 19:22 Discharge - Discharge Plan Condition: Stable Disposition: ADMITTED TO [facility] Referrals: Jenaro LOPEZ,Ade Nuñez [Primary Care Provider] - The documentation as recorded by the Royce venegas Alok accurately reflects the service I personally performed and the decisions made by me, Fermín Chand MD.
[2016-10-02] MEDS: HYDROmorphone* 1 MG/ML 1 ML SYR IV PRN (23:10)
[2016-10-03] MEDS: Ondansetron INJ* 2 MG/ML VIAL IV PRN ×2 (00:57→12:00)
--- NOTE | 2016-10-03 02:20 | HP ---
CC: Dr. Torrez; Dr. Beaver; Dr. Ade Eason * HISTORY AND PHYSICAL: DATE OF ADMISSION: 10/02/16 PRIMARY CARE PROVIDER: Dr. Ade Eason from [facility]. CHIEF COMPLAINT: Abdominal pain. 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 At that point, Dr. Beaver who did the surgery on 04/20/16 sutured proximal jejunum to transverse colon. Postoperatively, the patient did well until today in the morning when after having bowel movement, he developed severe epigastric pain and subsequent vomiting. The patient presented to his primary care doctor, who sent him to our ER for evaluation. Here CT of the abdomen showed partial small bowel obstruction and large distended stomach filled with fluid. The patient is going to be admitted with diagnosis of small bowel obstruction. Surgery will be consulted. PAST MEDICAL HISTORY: 1. History of small bowel obstruction as mentioned above from duodenal diverticula, status post laparoscopic surgery for it in April of 2016. 2. History of hypertension. 3. History of paroxysmal atrial fibrillation, on Xarelto. 4. History of PE. 5. History of dementia. 6. History of pancreatitis. 7. History of previous small bowel obstructions. 8. History of total knee replacement. MEDICATIONS: Include: 1. Diltiazem ER 360 mg daily. 2. Proscar 5 mg daily. 3. Aricept 10 mg daily. 4. Cialis 10 mg daily p.r.n. 5. Flovent 44 mcg 2 puffs inhalation b.i.d. 6. Xarelto 20 mg daily. FAMILY HISTORY: Positive for mother who of "old age" at the age of 96. Father with history of CVA. SOCIAL HISTORY: The patient is retired. He denies any drug use. He drinks 1 to 2 glasses of wine a day. He is a former smoker. He is and his surrogate is his , who is currently visiting in [place]. He asked me to report that his son, Gabe Mueller, is a substitute surrogate when the patient's is in [place]. Gabe's phone number is [phone]. If we were unable to contact Gabe, Gabe's daughter, Judy is reachable on [phone]. REVIEW OF SYSTEMS: Please see history of present illness. The patient was in his usual state of health until today in the morning when he developed abdominal pain. Last bowel movement was today in the morning. He has had intractable vomiting and epigastric pain ever since then. Currently, his abdominal pain is 4/10 in intensity, localized to his epigastrium. He received a dose of morphine in the emergency department. The patient from his current medical conditions, he complaints of chronic skin changes above the distal lower extremities and chronic leg edema that is worse when he standing up for long time. All the remaining 14 systems were reviewed with the patient and were otherwise negative. PHYSICAL EXAMINATION GENERAL: The patient is a very pleasant 81-year-old male, who is in no acute distress. Alert, awake, and oriented x3. VITAL SIGNS: Blood pressure of 140/73, heart rate of 62 and regular, respiratory rate 17, oxygen saturation % on room air, temperature of 98.1. HEENT: Head: Atraumatic, normocephalic. Eyes: Pupils equal, reactive to light and accommodation. Oropharynx clear. Mucosa moist. NECK: Supple. No JVD, no bruit bilaterally. RESPIRATORY: Clear to auscultation bilaterally. CARDIOVASCULAR: Regular rate and rhythm. No murmur. ABDOMEN: Slightly distended, soft, tender in the epigastrium significantly so, but no rebound and no guarding. Bowel sounds are present in all 4 quadrants. EXTREMITIES: There is venous stasis dermatitis present. There are 2 areas of it overlying the medial malleoli bilaterally. There is trace pedal edema. There is no clubbing or cyanosis. NEURO: Speech clear. Cranial nerves II through XII grossly intact. Motor strength is 5/5 bilaterally. PSYCHIATRIC: Oriented x3 with no evidence of anxiety or depression. DIAGNOSTIC STUDIES/LAB DATA: Showed sodium of 134, potassium 3.9, chloride 100 , carbon dioxide 27, BUN 14, creatinine 0.78. C-reactive protein was 11. CBC: White blood cell count of 9.9, hemoglobin of 13.8, hematocrit of 41, MCV of 95, and platelets of 198. Urinalysis grossly unremarkable. CT of abdomen and pelvis obtained today, impression: "Distended stomach with dilated proximal small bowel compatible with partial small bowel obstruction." ASSESSMENT AND PLAN: An 81-year-old male with history of recurrent small bowel obstructions with recent laparoscopic surgery for it in April 2016 presents with another partial small bowel obstruction. I discussed the case with Dr. Torrez. 1. For his small bowel obstruction, the patient is going to be placed on NPO diet. We will place NG tube due to a large distended stomach noted on the CT. Pepcid is going to be used for IV GI prophylaxis while NPO. Dr. Torrez is consulted on the case from Surgery. 2. In regards to the patient's paroxysmal atrial fibrillation, currently, the patient is in sinus rhythm on laboratory monitor in the ED. His Xarelto is going to be held. Due to NPO status, his Cardizem is going to be held also. The patient is going to be placed on Lopressor IV every 6 six hours scheduled dose withhold parameters. Xarelto is going to be held due to possibility of surgery in the near future. 3. In regards to DVT prophylaxis, the patient is going to be placed on heparin subcutaneously. 4. Code status. The patient's code status is full and his surrogate is his as mentioned above. When his is visiting in [place], his substitute surrogate is his son, Gabe. TIME SPENT: Approximately 70 minutes was spent on admission of this patient, more than half that time was spent [id number] with the patient during the interview and physical exam. [id number] #: [id number] MTDD
[2016-10-03] MEDS: Heparin VIAL(*) 5000 UNITS/ML VIAL (FIVE THOUSAND) SUBCUT SCH (05:23)
[2016-10-03 06:03] LABS: Hematocrit 42 % (42-52); Hemoglobin 13.9 g/dl (14.0-18.0); Mean Corpuscular HGB Conc 34 g/dl (31-36); Mean Corpuscular Hemoglobin 31 pg (27-31); Mean Corpuscular Volume 94 fL (80-94); Mean Platelet Volume 9 um3 (7.4-10.4); Red Blood Count 4.42 10^6/ul (4.0-5.4); Red Cell Distribution Width 16 % (10.5-15); White Blood Count 10.7 10^3/ul (3.5-10.8)
[2016-10-03 06:26] LABS: BUN/Creatinine Ratio 17.1 (8-20); Calcium 8.5 mg/dL (8.6-10.3); EGFR African American 126.9 (>60); EGFR Non-African American 98.7 (>60)
[2016-10-03] MEDS: NS 0.9% 1000 ML* 1,000 ML IV SCH (06:39)
--- NOTE | 2016-10-03 07:52 | RAD ---
INDICATION: Verify nasogastric tube placement COMPARISON: Most recent comparison chest x-ray dated April 20, 2015 TECHNIQUE: Single AP portable view of the chest was obtained. FINDINGS: Image quality is compromised due to the relative inferiority of a portable chest x-ray. There is been interval placement of a gastric tube with the tip terminating below the level the diaphragm overlying the air-filled gastric fundus. The heart and mediastinum exhibit normal size and contour. There is faint atherosclerotic calcification overlying the arch of the aorta. There is linear density at the left lung base partially obscuring the diaphragm and causing costophrenic angle blunting. There is no evidence of a large pleural effusion. Visualized bones are normal for the patient's age. IMPRESSION: 1. Appropriate position of nasogastric tube in the AP projection. 2. Density at the left lung base could represent atelectasis or consolidation.
[2016-10-03 07:55] LABS: Potassium 3.6 mmol/L (3.5-5.0)
[2016-10-03] MEDS ORDERED: D5LR 20 MEQ KCL 1000 ML BAG* 1,000 ML IV SCH (09:00)
--- NOTE | 2016-10-03 09:45 | PN ---
Subjective Date of Service: 10/03/16 Interval History: Pt feels "not well". Slightly confused, noted to be hypoxemic this AM and placed on 02. Did not sleep last night. No flatus since admission. Just accidentally pulled the NG out and RN is trying to place it back in. C/o epigastric abd pain 4/10 NG prior to that was draining large amount of black gastric contents. Objective Active Medications: Heparin Sodium (Porcine) (Heparin Vial(*)) 5,000 units SUBCUT Q8HR ERVIN Last Admin: 10/03/16 05:23 Dose: Not Given Hydromorphone HCl (Dilaudid Iv*) 0.5 mg IV Q2H PRN PRN Reason: PAIN Last Admin: 10/02/16 23:10 Dose: 0.5 mg Potassium Cl/Dextrose/Lact Ringer's (D5lr 20 Meq Kcl 1000 Ml Bag*) 1,000 mls @ 50 mls/hr IV PER RATE [facility] Famotidine 20 mg/ Sodium (Chloride) 102 mls @ 408 mls/hr IVPB BID [facility] Metoprolol Tartrate (Lopressor Iv*) 5 mg IV Q6H PRN PRN Reason: BLOOD PRESSURE Ondansetron HCl (Zofran Inj*) 4 mg IV Q6H PRN PRN Reason: NAUSEA/VOMITING Last Admin: 10/03/16 00:57 Dose: 4 mg Prochlorperazine Edisylate (Compazine Inj*) 10 mg IV Q6H PRN PRN Reason: NAUSEA Last Admin: 10/02/16 22:31 Dose: 10 mg Vital Signs 10/02/16 10/02/16 10/02/16 23:10 23:33 23:34 Temperature 97.9 F Pulse Rate 76 Respiratory 17 16 Rate Blood Pressure 145/58 (mmHg) O2 Sat by Pulse 90 92 Oximetry 10/03/16 10/03/16 00:10 07:29 Temperature 99.0 F Pulse Rate 100 Respiratory 18 16 Rate Blood Pressure 132/58 (mmHg) O2 Sat by Pulse 84 Oximetry Oxygen Devices in Use Now: None Appearance: 81 yo M in nAD, AAOx2, poor historian, intermittently confused Eyes: No Scleral Icterus, PERRLA Ears/Nose/Mouth/Throat: NL Teeth, Lips, Gums, Mucous Membranes Moist Neck: NL Appearance and Movements; NL JVP, Trachea Midline Respiratory: Symmetrical Chest Expansion and Respiratory Effort, Clear to Auscultation Cardiovascular: NL Sounds; No Murmurs; No JVD, - - irregular Abdominal: - - distended, soft, mild tenderness in epigastrium , BS+, no rebound , no guarding Lymphatic: No Cervical Adenopathy Extremities: No Clubbing, Cyanosis Skin: - - trace pedal edema b/l Neurological: NL Muscle Strength and Tone Result Diagrams: 10/04/16 04:42 10/04/16 08:32 Additional Lab and Data: Lab Results 10/02/16 10/02/16 10/02/16 Range/Units 17:13 17:13 17:13 WBC 9.9 (3.5-10.8) 10^3/ul RBC 4.35 (4.0-5.4) 10^6/ul Hgb 13.8 L (14.0-18.0) g/dl Hct 41 L (42-52) % MCV 95 H (80-94) fL MCH 32 H (27-31) pg MCHC 33 (31-36) g/dl RDW 16 H (10.5-15) % Plt Count 198 (150-450) 10^3/ul MPV 9 (7.4-10.4) um3 Neut % (Auto) 86.5 H (38-83) % Lymph % (Auto) 7.9 L (25-47) % [place] % (Auto) 5.0 (1-9) % Eos % (Auto) 0.1 (0-6) % Baso % (Auto) 0.5 (0-2) % Absolute Neuts (auto) 8.6 H (1.5-7.7) 10^3/ul Absolute Lymphs (auto) 0.8 L (1.0-4.8) 10^3/ul Absolute Monos (auto) 0.5 (0-0.8) 10^3/ul Absolute Eos (auto) 0 (0-0.6) 10^3/ul Absolute Basos (auto) 0 (0-0.2) 10^3/ul Absolute Nucleated RBC 0 10^3/ul Nucleated RBC % 0 Sodium 134 (133-145) mmol/L Potassium 3.9 (3.5-5.0) mmol/L Chloride 100 L (101-111) mmol/L Carbon Dioxide 27 (22-32) mmol/L Anion Gap 7 (2-11) mmol/L BUN 14 (6-24) mg/dL Creatinine 0.78 (0.67-1.17) mg/dL Est GFR ( Amer) 123.2 (>60) Est GFR (Non-Af Amer) 95.8 (>60) BUN/Creatinine Ratio 17.9 (8-20) Glucose 149 H (70-100) mg/dL Lactic Acid 0.9 (0.5-2.0) mmol/L Calcium 8.8 (8.6-10.3) mg/dL Total Bilirubin 0.60 (0.2-1.0) mg/dL AST 15 (13-39) U/L ALT 11 (7-52) U/L Alkaline Phosphatase 57 (34-104) U/L C-Reactive Protein 11.64 H (< 5.00) mg/L Total Protein 6.3 L (6.4-8.9) g/dL Albumin 3.7 (3.2-5.2) g/dL Globulin 2.6 (2-4) g/dL Albumin/Globulin Ratio 1.4 (1-3) Lipase 19 (11.0-82.0) U/L Assess/Plan/Problems-Billing Assessment: 81 yo M with h/o PAF, SBO/volvulus in 04/2016 presents with another SBO - Patient Problems (1) Small bowel obstruction Comment: h/o jejunal diverticuli possibly causing volvulus s/p laparoscopic surgery in 04/2016, now with another SBO Gastric secretions appear black-? GI bleed, will get gastroccult Will increase Pepcid to BID appreciate surgical consult Last dose of Xafrelto on 10/02/16 AM (2) Afib Comment: today appears to be in rate controlled A. fib will cont Lopressor IV prn Cardizem on hold (3) Hypertension Comment: BP is under good control (4) DVT prophylaxis Comment: SQ heparin
--- NOTE | 2016-10-03 10:43 | RAD ---
Indication: Nasogastric tube placement. Single frontal view of the chest performed at 0905 hours was reviewed. Comparison is made with previous exam dated earlier the same day. Nasogastric tube is in place. Lucency is noted under the left and right hemidiaphragms consistent with interposed colon and air distended stomach. IMPRESSION: NASOGASTRIC TUBE IN APPROPRIATE POSITION.
[2016-10-03] MEDS: HYDROmorphone* 1 MG/ML 1 ML SYR IV PRN (12:01)
--- NOTE | 2016-10-03 12:30 | CONS ---
DATE OF CONSULT: 10/03/2016. This patient was seen at [facility] in room 420 on Tuesday, October [id number]. CHIEF COMPLAINT: Worsening abdominal pain. HISTORY OF PRESENT ILLNESS: The patient is an 81-year-old male admitted to the Hospitalist's service on 10/02/2016 with a history of small bowel obstruction in April 2016, who at that point underwent diagnostic laparoscopy with enteropexy by Dr. Beaver. 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 Postoperatively, the patient did well until the morning of 10/02/2016 when after having a bowel movement, he developed severe epigastric pain and subsequent vomiting. The patient presented to his primary care, Dr. Ade Eason, who sent him to our emergency department for evaluation. Here the CAT scan of the abdomen showed partial small bowel obstruction and large distended stomach filled with fluid. The patient was admitted to the Hospitalist's service with a diagnosis of small bowel obstruction. A nasogastric tube was placed and he was kept NPO and Pepcid IV was initiated for GI prophylaxis. PAST MEDICAL HISTORY: Small bowel obstruction April 2016 as described in history of present illness, hypertension, paroxysmal atrial fibrillation on Xarelto, pulmonary embolism, dementia, pancreatitis, total knee replacement. MEDICATIONS: 1. Xarelto 20 mg daily, he took the last dose 10/02/2016. 2. Diltiazem ER 360 mg daily. 3. Proscar 5 mg p.o. daily. 4. Aricept 10 mg p.o. daily. 5. Cialis 10 mg prn. 6. Flovent 44 mcg two puffs inhalation b.i.d. ALLERGIES: AZITHROMYCIN. FAMILY HISTORY: Positive for mother who of "old age" at the age of 96, father with history of CVA. SOCIAL HISTORY: He is retired. He is a former smoker. He is and his is currently away in [place]. His son, Gabe Mueller, is a substitute surrogate when the patient's is away. He drinks one to two glasses of wine daily. REVIEW OF SYSTEMS: Please see history of present illness. The patient was in his usual state of health until the morning of 10/02/2016 when he developed abdominal pain. Last bowel movement was 10/02/2016. He denies any chest pain, pressure or palpitations. He denies any shortness of breath. Currently his abdominal pain is 4/10 in intensity, localized to the epigastrium and right upper and mid abdomen. He is passing scant flatus. He has a nasogastric tube that drained over 500 ml since it was inserted and it will be Hemocculted today as it does have a blood- tinged appearance. He has a history of dementia, but is alert and oriented times three. He complains of chronic leg edema, worse when he is standing up for a long time, associated with chronic skin changes of the lower extremities. He does have a history of pulmonary embolism. He denies any previous anesthesia complications. PHYSICAL EXAM: General: The patient is an 81-year-old male, well-developed, in no acute distress; alert, awake and oriented times three. Vital Signs: Blood pressure 132/58, heart rate 100, respiratory rate 16, O2 saturation was 84 percent on room air, two liters of oxygen nasal cannula was initiated and O2 saturation came up to 88 percent, temperature is 99 tympanic, respiratory rate 16. HEENT: Benign. Neck: Supple. No carotid bruit bilaterally. Lungs: Breath sounds bilaterally clear and equal. Heart: Regular rate and rhythm. No murmurs or rubs appreciated. Abdomen: High pitched bowel sounds, mild distention but soft, exquisitely tender in the epigastrium and right upper and right mid abdomen with mild guarding in the right mid abdomen. Mild rebound tenderness right mid abdomen. Extremities: Venous stasis dermatitis present. No skin ulcerations. Trace pedal edema. Neurologic: Speech is clear. Motor strength is 5/5 bilaterally. DIAGNOSTIC STUDIES/LAB DATA: White blood count 10.7 this morning, neutrophils 88.9; sodium 133, potassium 3.6, chloride 99, creatinine 0.76, glucose 133. As previously mentioned, CT of the abdomen and pelvis obtained 10/02/2016: Impression: Distended stomach with dilated proximal small bowel compatible with partial small bowel obstruction. ASSESSMENT AND PLAN: An 81-year-old male with a history of recurrent small bowel obstructions with recent diagnostic laparoscopy with enteropexy in April 2016, presents with another partial small bowel obstruction. The patient will continue with NPO diet and nasogastric decompression, IV fluid hydration. He took his last dose of Xarelto 10/02/2016. He will be followed for medical management by the Hospitalist's service. Dr. Torrez will be updated and abdominal films, two views, are ordered for tomorrow morning, 2016. TIME SPENT: Approximately 60 minutes were spent on consultation, more than half of that time was spent [id number] with the patient during interview and physical exam. GABE MOREL, INDUSTRIAL ENG [id number]/CPS #: [id number] ADDENDUM: Patient seen and evaluated by me. History as above. At present, he has a benign abdomen. He may require surgical intervention for this but given Xarelto need to wait another day. Case also discussed with Dr. Beaver who will be availble tomorrow if surgery needed then. ROYAL
[2016-10-03] MEDS: Pantoprazole IV* 80 MG in NS 0.9% 250 ML* 250 ML IVPB SCH (13:50)
[2016-10-03 15:53] LABS: Hematocrit 41 % (42-52); Hemoglobin 13.7 g/dl (14.0-18.0)
[2016-10-03 15:56] LABS: Comments Flag Yes
[2016-10-03 22:17] LABS: Hematocrit 41 % (42-52); Hemoglobin 13.5 g/dl (14.0-18.0)
[2016-10-04] MEDS: Pantoprazole IV* 80 MG in NS 0.9% 250 ML* 250 ML IVPB SCH ×3 (01:19→17:59)
[2016-10-04] MEDS: D5LR 20 MEQ KCL 1000 ML BAG* 1,000 ML IV SCH ×2 (03:56→21:56)
[2016-10-04 05:00] LABS: Hematocrit 40 % (42-52); Hemoglobin 13.3 g/dl (14.0-18.0)
--- NOTE | 2016-10-04 08:54 | RAD ---
INDICATION: Partial small bowel obstruction COMPARISON: CT abdomen pelvis dated October 02, 2016 that demonstrated dilated loops of small bowel in the left upper quadrant measuring up to 5 cm in diameter. TECHNIQUE: Supine and upright views of the abdomen were obtained. FINDINGS: There has been interval placement of a gastric tube with the tip terminating overlying the gastric fundus. On the standing views there is no free peritoneal gas below the diaphragm. There are air-fluid levels in the small bowel overlying the left upper quadrant. On the supine views gas-filled loops of small bowel are seen in the left upper quadrant measuring up to 4.4 cm in diameter. Gas and stool is seen overlying the rectum. IMPRESSION: Radiographic findings are consistent with proximal to mid level partial small bowel obstruction possibly with slight improvement in small bowel dilatation when compared to the October 02, 2016 CT.
[2016-10-04 09:03] LABS: BUN/Creatinine Ratio 16.5 (8-20); Calcium 8.6 mg/dL (8.6-10.3); EGFR African American 111.5 (>60); EGFR Non-African American 86.7 (>60); Potassium 3.9 mmol/L (3.5-5.0)
--- NOTE | 2016-10-04 11:05 | PN ---
Subjective Date of Service: 10/04/16 Interval History: pt feels better. Still mildly disoriented with poor short term memory. Is not sure if he had been passing flatus. Objective Active Medications: Hydromorphone HCl (Dilaudid Iv*) 0.5 mg IV Q2H PRN PRN Reason: PAIN Last Admin: 10/03/16 12:01 Dose: 0.5 mg Pantoprazole Sodium 80 mg/ (Sodium Chloride) 250 mls @ 25 mls/hr IVPB Q10H ERVIN Last Admin: 10/04/16 09:40 Dose: Not Given Potassium Cl/Dextrose/Lact Ringer's (D5lr 20 Meq Kcl 1000 Ml Bag*) 1,000 mls @ 75 mls/hr IV PER RATE ERVIN Last Admin: 10/04/16 03:56 Dose: 75 mls/hr Metoprolol Tartrate (Lopressor Iv*) 5 mg IV Q4H ERVIN Ondansetron HCl (Zofran Inj*) 4 mg IV Q6H PRN PRN Reason: NAUSEA/VOMITING Last Admin: 10/03/16 12:00 Dose: 4 mg Prochlorperazine Edisylate (Compazine Inj*) 10 mg IV Q6H PRN PRN Reason: NAUSEA Last Admin: 10/02/16 22:31 Dose: 10 mg Vital Signs 10/03/16 10/03/16 10/03/16 12:01 13:01 15:26 Temperature 98.8 F Pulse Rate 93 Respiratory 20 20 15 Rate Blood Pressure 129/65 (mmHg) O2 Sat by Pulse 92 Oximetry 10/03/16 10/03/16 10/03/16 16:00 20:00 20:14 Temperature 99.0 F Pulse Rate 87 Respiratory 17 17 Rate Blood Pressure 148/82 (mmHg) O2 Sat by Pulse 92 95 Oximetry 10/03/16 10/04/16 10/04/16 23:29 03:45 07:40 Temperature 98.4 F 98.4 F 98.3 F Pulse Rate 77 66 26 Respiratory 15 15 17 Rate Blood Pressure 169/95 127/61 125/62 (mmHg) O2 Sat by Pulse 95 92 95 Oximetry 10/04/16 10:10 Temperature Pulse Rate 78 Respiratory Rate Blood Pressure (mmHg) O2 Sat by Pulse Oximetry Oxygen Devices in Use Now: Nasal Cannula - at 2 L Appearance: 81 yo M in nAd, AAOx2 Eyes: No Scleral Icterus, PERRLA Ears/Nose/Mouth/Throat: NL Teeth, Lips, Gums, Mucous Membranes Moist Neck: NL Appearance and Movements; NL JVP, Trachea Midline Respiratory: Symmetrical Chest Expansion and Respiratory Effort, - - faint bibasiliar crackles Cardiovascular: - - irregular Abdominal: - - midl epigastric tenderness , no rebound, no guarding , BS hypoactive Lymphatic: No Cervical Adenopathy Extremities: No Clubbing, Cyanosis, - - trace ankl edema b/l Skin: No Nodules or Sclerosis, - - venous staisis dermatitis b/l LE's Neurological: NL Muscle Strength and Tone Result Diagrams: 10/04/16 04:42 10/04/16 08:32 Additional Lab and Data: Lab Results 10/02/16 10/02/16 10/02/16 Range/Units 17:13 17:13 17:13 WBC 9.9 (3.5-10.8) 10^3/ul RBC 4.35 (4.0-5.4) 10^6/ul Hgb 13.8 L (14.0-18.0) g/dl Hct 41 L (42-52) % MCV 95 H (80-94) fL MCH 32 H (27-31) pg MCHC 33 (31-36) g/dl RDW 16 H (10.5-15) % Plt Count 198 (150-450) 10^3/ul MPV 9 (7.4-10.4) um3 Neut % (Auto) 86.5 H (38-83) % Lymph % (Auto) 7.9 L (25-47) % [place] % (Auto) 5.0 (1-9) % Eos % (Auto) 0.1 (0-6) % Baso % (Auto) 0.5 (0-2) % Absolute Neuts (auto) 8.6 H (1.5-7.7) 10^3/ul Absolute Lymphs (auto) 0.8 L (1.0-4.8) 10^3/ul Absolute Monos (auto) 0.5 (0-0.8) 10^3/ul Absolute Eos (auto) 0 (0-0.6) 10^3/ul Absolute Basos (auto) 0 (0-0.2) 10^3/ul Absolute Nucleated RBC 0 10^3/ul Nucleated RBC % 0 Sodium 134 (133-145) mmol/L Potassium 3.9 (3.5-5.0) mmol/L Chloride 100 L (101-111) mmol/L Carbon Dioxide 27 (22-32) mmol/L Anion Gap 7 (2-11) mmol/L BUN 14 (6-24) mg/dL Creatinine 0.78 (0.67-1.17) mg/dL Est GFR ( Amer) 123.2 (>60) Est GFR (Non-Af Amer) 95.8 (>60) BUN/Creatinine Ratio 17.9 (8-20) Glucose 149 H (70-100) mg/dL Lactic Acid 0.9 (0.5-2.0) mmol/L Calcium 8.8 (8.6-10.3) mg/dL Total Bilirubin 0.60 (0.2-1.0) mg/dL AST 15 (13-39) U/L ALT 11 (7-52) U/L Alkaline Phosphatase 57 (34-104) U/L C-Reactive Protein 11.64 H (< 5.00) mg/L Total Protein 6.3 L (6.4-8.9) g/dL Albumin 3.7 (3.2-5.2) g/dL Globulin 2.6 (2-4) g/dL Albumin/Globulin Ratio 1.4 (1-3) Lipase 19 (11.0-82.0) U/L Microbiology and Other Data: Microbiology 10/03/16 10:15 Gastric Occult Blood - Final Gastric Fluid Assess/Plan/Problems-Billing Assessment: 81 yo M with h/o PAF, SBO/volvulus in 04/2016 presents with another SBO - Patient Problems (1) Small bowel obstruction Comment: h/o 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 Last dose of Xafrelto on 10/02/16 AM (2) Afib Comment: today in A. fib, HR at 130, but has not received the lopressor IV yet today. will cont Lopressor IV ERVIN Cardizem on hold Pt has h/o good exercise tolerance, EKG unchanged from 2015 . no further work up necessary. Pt is an acceptable candidate for anticipated surgery (3) Hypertension Comment: BP is under good control (4) Upper GI bleed Comment: Gastroccult positive. On Protonix gtt. Xarelto and heparin discontinued Hb stable (5) DVT prophylaxis Comment: anticoagulation contraindicated due to GI bleed
[2016-10-04] MEDS: Metoprolol Tartrate IV* 1 MG/ML 5 ML VIAL IV SCH ×4 (11:25→21:48)
[2016-10-04] MEDS ORDERED: fentaNYL* 50 MCG/ML 2 ML VIAL (100 MCG VIAL) ONE ×2 (13:00→14:37)
[2016-10-04] MEDS ORDERED: KETAMINE HCL* 50 MG/ML 10 ML VIAL ONE (13:01)
[2016-10-04] MEDS ORDERED: Midazolam* 1 MG/ML 2 ML VIAL (2 MG) ONE (13:01)
[2016-10-04] MEDS ORDERED: ceFAZolin 2 GM PREMIX(*) 2 GM/50 ML BAG IVPB ONE ×2 (13:27→13:29)
[2016-10-04] MEDS ORDERED: Bupivacaine 0.25% EPI 200,000* 30 ML SDV ONE (13:40)
[2016-10-04] MEDS ORDERED: Neostigmine Methylsulfate* 2 MG/2 ML SYRINGE ONE (14:20)
[2016-10-04] MEDS ORDERED: Lidocaine 2% PF * 5 ML VIAL ONE (14:25)
[2016-10-04] MEDS ORDERED: Phenylephrine INJ* 10 MG/ML 1 ML VIAL (10 MG) ONE (14:25)
[2016-10-04] MEDS ORDERED: Propofol* 10 MG/ML 20 ML BTL IV PUSH ONE (14:25)
[2016-10-04] MEDS ORDERED: PROCHLORPERAZINE INJ 5 MG/ML 2 ML VIAL ONE (14:25)
[2016-10-04] MEDS ORDERED: Ondansetron INJ* 2 MG/ML VIAL ONE (14:25)
[2016-10-04] MEDS ORDERED: Dexamethasone IV* 4 MG/ML 1 ML (4 MG) ONE (14:25)
[2016-10-04] MEDS ORDERED: EPHEDrine (Pressors)* 50 MG/ML VIAL ONE (14:25)
[2016-10-04] MEDS ORDERED: Heparin VIAL(*) 5000 UNITS/ML VIAL (FIVE THOUSAND) ONE (14:28)
[2016-10-04] MEDS ORDERED: Metoprolol Tartrate IV* 1 MG/ML 5 ML VIAL ONE (14:30)
[2016-10-04] MEDS ORDERED: Succinylcholine* 20 MG/ML 10 ML VIAL ONE (14:40)
[2016-10-04] MEDS ORDERED: fentaNYL* 50 MCG/ML 2 ML VIAL (100 MCG VIAL) IV PRN (15:52)
[2016-10-04] MEDS ORDERED: Morphine INJ* 2 MG/ML 1 ML SYRINGE IV PRN (15:52)
[2016-10-04] MEDS ORDERED: Ondansetron INJ* 2 MG/ML VIAL IV PRN (15:52)
[2016-10-04 19:27] LABS: Hematocrit 40 % (42-52); Hemoglobin 13.1 g/dl (14.0-18.0)
[2016-10-04] MEDS: Heparin VIAL(*) 5000 UNITS/ML VIAL (FIVE THOUSAND) SUBCUT SCH (21:48)
[2016-10-05] MEDS: Metoprolol Tartrate IV* 1 MG/ML 5 ML VIAL IV SCH ×7 (01:54→19:42)
[2016-10-05] MEDS: Pantoprazole IV* 80 MG in NS 0.9% 250 ML* 250 ML IVPB SCH (05:21)
[2016-10-05] MEDS: Heparin VIAL(*) 5000 UNITS/ML VIAL (FIVE THOUSAND) SUBCUT SCH ×3 (05:22→21:13)
[2016-10-05 05:58] LABS: Hematocrit 37 % (42-52); Hemoglobin 12.4 g/dl (14.0-18.0); Mean Corpuscular HGB Conc 33 g/dl (31-36); Mean Corpuscular Hemoglobin 32 pg (27-31); Mean Corpuscular Volume 95 fL (80-94); Mean Platelet Volume 9 um3 (7.4-10.4); Red Blood Count 3.94 10^6/ul (4.0-5.4); Red Cell Distribution Width 15 % (10.5-15); White Blood Count 8.1 10^3/ul (3.5-10.8)
[2016-10-05 06:18] LABS: BUN/Creatinine Ratio 14.5 (8-20); Calcium 8.2 mg/dL (8.6-10.3); EGFR African American 114.6 (>60); EGFR Non-African American 89.1 (>60); Potassium 4.1 mmol/L (3.5-5.0)
[2016-10-05] MEDS: D5LR 20 MEQ KCL 1000 ML BAG* 1,000 ML IV SCH (11:49)
[2016-10-05] MEDS ORDERED: Acetaminophen TAB* 325 MG PO PRN (12:08)
[2016-10-05] MEDS ORDERED: HYDROcodone/ACETAMIN 5-325 MG* 1 TAB PO PRN (12:09)
--- NOTE | 2016-10-05 12:11 | PN ---
Progress Note - Progress Note Date of Service: 10/05/16 Note: Surgery Progress: S: POD #1. Doing well. Not requiring any analgesics. Robbi clears. +flatus; -BM. Ambulating. O: Vital Signs - 8 hr 10/05/16 10/05/16 10/05/16 05:48 07:32 08:00 Temperature 98.0 F 97.9 F Pulse Rate 93 80 Respiratory 16 16 16 Rate Blood Pressure 103/70 108/65 (mmHg) O2 Sat by Pulse 96 95 95 Oximetry Intake and Output Last 24 Hours 10/03/16 10/04/16 10/05/16 10/06/16 06:59 06:59 06:59 06:59 Intake Total 1949 1109 5324 480 Output Total 1220 3250 775 200 Balance 729 -2141 4549 280 Weight 167 lb Intake: IV Fluids 7070 057 4675 D5 LR 20Meq KCL 897 1655 LR 1400 NS (0.9%) 949 NS 50ML, Cefazolin 2G 50 Protonix 209 IVPB 92 Protonix 92 Oral 0 0 2009 480 NG Tube Irrigate Amount 120 Output: NG Tube Drainage Amount 400 2700 Urine 0 550 775 200 Emesis 820 Other: Estimated Void Medium Medium # Bowel Movements 0 0 0 0 # Voids 0 1 1 Heart: reg Lungs: clear w/ few crackles L base Abd: Lap sites look good. BS present; soft; mild incisional tenderness only A: s/p laparoscopic lysis of adhesion (for SBO- resolved) P: advance diet; probable d/c home from surgical standpoint 10/06 if robbi diet. I did discuss him restarting his Xaraleto on 10/06 with him and his . His stated that the afib was a single incident in the past and that his PE was over a year ago, following knee surgery. Before looking at his record and seeing his ECG from 10/04 w/ afib, I suggested to her that she discuss the indications for ongoing AC with his PCP and/or mechanical service specialist. If possible, I will return to update her on his recent ECG. Will tentatively set up d/c paperwork for tomorrow.
--- NOTE | 2016-10-05 13:10 | OP ---
CC: Dr. Ade Eason * DATE OF OPERATION: 10/04/16 - ROOM #420 DATE OF : 37 SURGEON: Onofre Beaver MD. SUPERINTENDENT GENERAL: Marjorie Bahena NP. ANESTHESIOLOGIST: Dr. Ohara. ANESTHESIA: General anesthetic, local infiltration. PRE-OP DIAGNOSIS: Small bowel obstruction. POST-OP DIAGNOSIS: Small bowel obstruction. OPERATIVE PROCEDURE: Laparoscopy with lysis of adhesions. DESCRIPTION OF PROCEDURE: The patient was supine on the operative table. After adequate general anesthetic, compression stockings, Meme Hugger warmer, and intravenous antibiotics, the abdomen was prepped with antiseptic and draped in a sterile fashion. Local infiltrative anesthesia was administered. A small umbilical incision was carried out and ultimately left-sided, right-sided, and infraumbilical incisions were also utilized. A blunt port cannula was placed at the umbilicus. The additional sites were all 5 mm cannulae. Inspection internally revealed some dilated small bowel. The small bowel was run back from the cecum to the ligament of Treitz. There is a violin string type band adhesion down towards the pelvis, that was about 3 cm in length and may be less than 0.5 cm in diameter. This was divided. The bowel was run all the way up to the ligament of Treitz. There was no other band adhesion in the region of the previous enteropexy and this band was about 2 cm in length and about 3 to 4 mm in diameter. This was divided as well. There were no other suspicious areas. No other adhesions. Nothing that was worrisome for any additional source of bowel entrapment. 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 There was one area that had three of them adjacent to each other. The remainder of them were all more widely . It was not felt practical to remove these easily and it was not felt that they warranted multiple areas of small bowel resection. Therefore, they were left in situ. He tolerated the procedure well. The cannulae were removed. The pneumoperitoneum was allowed to escape. The umbilical fascia was closed with 0 Vicryl and the skin was closed with 5-0 Vicryl followed by Steri-Strips. He was brought to recovery in good condition. There were no complications. No drains. No pathologic specimens. Sponge and instrument counts were correct. Estimated blood loss was 5 mL. [id number]/[facility] #: [id number] [facility]
[2016-10-05] MEDS ORDERED: Metoprolol Tartrate IV* 1 MG/ML 5 ML VIAL IV SCH (14:14)
--- NOTE | 2016-10-05 16:48 | PN ---
Subjective Date of Service: 10/05/16 Interval History: Pain well controlled Encouraged to get out of bed today Has no complaints +flatus, no BMs Objective Active Medications: Acetaminophen (Tylenol Tab*) 650 mg PO Q4H PRN PRN Reason: mild pain Hydrocodone Bitart/Acetaminophen ([place] 5-325 Tab*) 1 tab PO Q4H PRN PRN Reason: PAIN Heparin Sodium (Porcine) (Heparin Vial(*)) 5,000 units SUBCUT Q8HR [facility] Last Admin: 10/05/16 14:19 Dose: 5,000 units Hydromorphone HCl (Dilaudid Iv*) 0.5 mg IV Q2H PRN PRN Reason: PAIN Last Admin: 10/03/16 12:01 Dose: 0.5 mg Potassium Cl/Dextrose/Lact Ringer's (D5lr 20 Meq Kcl 1000 Ml Bag*) 1,000 mls @ 75 mls/hr IV PER RATE [facility] Last Admin: 10/05/16 11:49 Dose: 75 mls/hr Metoprolol Tartrate (Lopressor Iv*) 5 mg IV Q4H [facility] Last Admin: 10/05/16 16:15 Dose: 5 mg Ondansetron HCl (Zofran Inj*) 4 mg IV Q6H PRN PRN Reason: NAUSEA/VOMITING Last Admin: 10/03/16 12:00 Dose: 4 mg Pantoprazole Sodium (Protonix Iv*) 40 mg IV Q24H [facility] Prochlorperazine Edisylate (Compazine Inj*) 10 mg IV Q6H PRN PRN Reason: NAUSEA Last Admin: 10/02/16 22:31 Dose: 10 mg Vital Signs 10/04/16 10/04/16 10/04/16 17:05 17:08 17:09 Temperature 98.5 F 98.5 F Pulse Rate 88 88 Respiratory 16 16 Rate Blood Pressure 107/59 107/59 (mmHg) O2 Sat by Pulse 95 95 96 Oximetry 10/04/16 10/04/16 10/04/16 18:35 20:00 20:02 Temperature 97.7 F 97.7 F Pulse Rate 93 96 Respiratory 16 17 16 Rate Blood Pressure 103/62 114/58 (mmHg) O2 Sat by Pulse 97 96 Oximetry 10/04/16 10/04/16 10/05/16 21:29 23:38 00:00 Temperature 98.0 F 98.2 F Pulse Rate 75 89 Respiratory 16 16 Rate Blood Pressure 111/67 103/69 (mmHg) O2 Sat by Pulse 97 97 97 Oximetry 10/05/16 10/05/16 10/05/16 02:09 05:48 07:32 Temperature 98.3 F 98.0 F 97.9 F Pulse Rate 87 93 80 Respiratory 16 16 16 Rate Blood Pressure 118/64 103/70 108/65 (mmHg) O2 Sat by Pulse 96 96 95 Oximetry 10/05/16 10/05/16 10/05/16 08:00 14:18 16:00 Temperature 98.4 F Pulse Rate 93 Respiratory 16 16 Rate Blood Pressure 119/58 (mmHg) O2 Sat by Pulse 95 90 95 Oximetry 10/05/16 16:01 Temperature 99.1 F Pulse Rate 108 Respiratory 18 Rate Blood Pressure 125/63 (mmHg) O2 Sat by Pulse 95 Oximetry Oxygen Devices in Use Now: Nasal Cannula - at 2 L Appearance: younger than stated age, NAD Eyes: No Scleral Icterus, PERRLA Ears/Nose/Mouth/Throat: NL Teeth, Lips, Gums, Clear Oropharnyx, Mucous Membranes Moist Neck: NL Appearance and Movements; NL JVP, Trachea Midline Respiratory: Symmetrical Chest Expansion and Respiratory Effort, - - rales 1/3 up b/l Cardiovascular: - - IRIR Abdominal: NL Sounds; No Tenderness; No Distention, - - surgical incisons cdi Skin: No Rash or Ulcers Neurological: Alert and Oriented x 3 Result Diagrams: 10/05/16 04:57 10/05/16 04:57 Additional Lab and Data: Lab Results 10/02/16 10/02/16 10/02/16 Range/Units 17:13 17:13 17:13 WBC 9.9 (3.5-10.8) 10^3/ul RBC 4.35 (4.0-5.4) 10^6/ul Hgb 13.8 L (14.0-18.0) g/dl Hct 41 L (42-52) % MCV 95 H (80-94) fL MCH 32 H (27-31) pg MCHC 33 (31-36) g/dl RDW 16 H (10.5-15) % Plt Count 198 (150-450) 10^3/ul MPV 9 (7.4-10.4) um3 Neut % (Auto) 86.5 H (38-83) % Lymph % (Auto) 7.9 L (25-47) % [place] % (Auto) 5.0 (1-9) % Eos % (Auto) 0.1 (0-6) % Baso % (Auto) 0.5 (0-2) % Absolute Neuts (auto) 8.6 H (1.5-7.7) 10^3/ul Absolute Lymphs (auto) 0.8 L (1.0-4.8) 10^3/ul Absolute Monos (auto) 0.5 (0-0.8) 10^3/ul Absolute Eos (auto) 0 (0-0.6) 10^3/ul Absolute Basos (auto) 0 (0-0.2) 10^3/ul Absolute Nucleated RBC 0 10^3/ul Nucleated RBC % 0 Sodium 134 (133-145) mmol/L Potassium 3.9 (3.5-5.0) mmol/L Chloride 100 L (101-111) mmol/L Carbon Dioxide 27 (22-32) mmol/L Anion Gap 7 (2-11) mmol/L BUN 14 (6-24) mg/dL Creatinine 0.78 (0.67-1.17) mg/dL Est GFR ( Amer) 123.2 (>60) Est GFR (Non-Af Amer) 95.8 (>60) BUN/Creatinine Ratio 17.9 (8-20) Glucose 149 H (70-100) mg/dL Lactic Acid 0.9 (0.5-2.0) mmol/L Calcium 8.8 (8.6-10.3) mg/dL Total Bilirubin 0.60 (0.2-1.0) mg/dL AST 15 (13-39) U/L ALT 11 (7-52) U/L Alkaline Phosphatase 57 (34-104) U/L C-Reactive Protein 11.64 H (< 5.00) mg/L Total Protein 6.3 L (6.4-8.9) g/dL Albumin 3.7 (3.2-5.2) g/dL Globulin 2.6 (2-4) g/dL Albumin/Globulin Ratio 1.4 (1-3) Lipase 19 (11.0-82.0) U/L Microbiology and Other Data: Microbiology 10/03/16 10:15 Gastric Occult Blood - Final Gastric Fluid Assess/Plan/Problems-Billing Assessment: 81 yo M with h/o PAF, SBO/volvulus in 04/2016 presents with SBO now POD 1 JOSSELYN - Patient Problems (1) Small bowel obstruction Comment: POD 1 JOSSELYN 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 Timing for starting AC not readily apparent. stop ppx gtt and start PPI IV qd to be PO on discharge (3) Hypertension Comment: BP is under good control (4) Afib Comment: will cont Lopressor IV ERVIN restart Cardizem tomorrow based on SBP (5) DVT prophylaxis Comment: anticoagulation contraindicated due to GI bleed
[2016-10-06] MEDS: Metoprolol Tartrate IV* 1 MG/ML 5 ML VIAL IV SCH ×3 (00:16→10:20)
[2016-10-06] MEDS: Heparin VIAL(*) 5000 UNITS/ML VIAL (FIVE THOUSAND) SUBCUT SCH ×2 (05:17→14:07)
--- NOTE | 2016-10-06 08:18 | RAD ---
INDICATION: Hypoxia. COMPARISON: Comparison is made with prior chest x-ray studies from April 20, 2015 and October 03, 2016. TECHNIQUE: Dual-energy PA and lateral views of the chest were obtained. FINDINGS: The heart is within normal limits in size. Mediastinal contours appear within normal limits. The lungs are underinflated. There are small bibasilar infiltrates which appear slightly more prominent. There is interposition of the colon between the right hemidiaphragm and liver which is unchanged. There are trace bilateral pleural effusions. IMPRESSION: EXPIRATORY EXAM, SMALL BIBASILAR INFILTRATES DEMONSTRATING SLIGHT PROGRESSION.
[2016-10-06] MEDS ORDERED: Pantoprazole IV* 40 MG IV SCH (09:00)
--- NOTE | 2016-10-06 11:15 | PN ---
Progress Note - Progress Note Date of Service: 10/06/16 SOAP: Subjective: Notes BM and flatus. No pain. Has been having low O2 sats and episodes of tachycardia noted. Objective: Vital Signs Temp 97.5 F 10/06/16 08:07 Pulse 103 10/06/16 08:07 Resp 15 10/06/16 08:07 BP 131/65 10/06/16 08:07 Pulse Ox 96 10/06/16 08:25 Dressed and sitting in chair with O2 cannulae. NAD Abd: incis c/d/i; no erythema; +BS; soft and min tender at umbilicus. Intake & Output 10/05/16 10/06/16 10/06/16 18:59 06:59 18:59 Intake Total 2732 250 Output Total 600 1100 Balance 2132 -850 Intake: IV Fluids 1242 D5 LR 20Meq KCL 1022 Protonix 220 Oral 1490 250 Output: Urine 600 1100 Other: Estimated Void Medium Large # Bowel Movements 0 1 # Voids 2 3 Assessment: POD#2 s/p lap JOSSELYN for SBO. Doing well but looks to have poor rate control of afib and has O2 requirement. Plan: Cont diet. Home when cleared by Dr. Moreland.
[2016-10-06 11:49] LABS: Hematocrit 38 % (42-52); Hemoglobin 12.5 g/dl (14.0-18.0); Mean Corpuscular HGB Conc 33 g/dl (31-36); Mean Corpuscular Hemoglobin 32 pg (27-31); Mean Corpuscular Volume 95 fL (80-94); Mean Platelet Volume 9 um3 (7.4-10.4); Red Blood Count 3.97 10^6/ul (4.0-5.4); Red Cell Distribution Width 16 % (10.5-15); White Blood Count 8.4 10^3/ul (3.5-10.8)
[2016-10-06] MEDS ORDERED: Diltiazem CD CAP* 120 MG PO ONE (11:52)
[2016-10-06] MEDS ORDERED: Diltiazem CD CAP* 180 MG PO ONE (11:53)
[2016-10-06] MEDS ORDERED: Diltiazem CD CAP* 180 MG PO SCH (12:00)
[2016-10-06 15:48] VITALS: BP 144/78
--- NOTE | 2016-10-07 08:12 | DS ---
CC: Dr. Ade Eason; Dr. Beaver; Dr. Juarez * DISCHARGE SUMMARY: DATE OF ADMISSION: 10/02/16 DATE OF DISCHARGE: 10/06/16 PRIMARY CARE PROVIDER: Dr. Ade Eason in [place]. SURGEON: Dr. Beaver. MONKEY BREEDER: Dr. Juarez. PRIMARY DIAGNOSIS: Small bowel obstruction, status post lysis of adhesions on 10/04/[address] Beaver. Suspected upper gastrointestinal bleed. SECONDARY DIAGNOSES: Include: 1. Hypertension. 2. Atrial fibrillation. 3. History of pulmonary embolisms. 4. History of pancreatitis. 5. History of previous small bowel obstructions. 6. [id number] dementia. MEDICATIONS ON DISCHARGE: 1. Diltiazem ER 360 mg daily. 2. Finasteride 5 mg daily. 3. Donepezil 10 mg daily. 4. Cialis 10 mg as needed. 5. Flovent 2 puffs inhale twice daily. 6. Xarelto 20 mg daily. 7. Omeprazole 40 mg daily. 8. Acetaminophen 650 mg every 4 hours p.r.n. fever. PERTINENT LABORATORY DATA: Discharge hemoglobin 12.5. HISTORY OF PRESENT ILLNESS AND HOSPITAL COURSE: This is a pleasant 81-year-old man with past medical history of recent small bowel obstruction April 2016, status post laparoscopic surgery notable for multiple jejunal diverticula with further procedure with Dr. Beaver reportedly suturing proximal jejunum to the transverse colon, returning to the hospital with small bowel obstruction, underwent lysis of adhesions with Dr. Beaver 10/04/16 without any complications. He was tolerated regular diet as well as having bowel movements and flatus on the day of discharge. Of note, during the patient's hospital stay , he had an NG tube placed with dark black output that has been positive for blood with Gastroccult testing. 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 The patient's Xarelto was held in the setting of suspected upper GI bleed. The patient and his additionally report he is slated to undergo colonoscopy with Dr. Juarez on October 18 for positive fecal occult testing. A long discussion about restarting Xarelto for his atrial fibrillation prior to discharge. They understands the risks of restarting include potentially worsening upper GI bleed versus increased risk of stroke in the setting of atrial fibrillation, which the patient largely remained in duration the course of the hospital stay. At the time of discharge, the patient and his elected to restart Xarelto. I did place a call to Dr. Juarez's answering service on this weekend day and a message was forwarded asking him to kindly add on an upper endoscopy, to plan colonoscopy on the to evaluate for sources of bleeding. There were no other complications with the patient's hospital stay. At followup; 1. Please follow up as Dr. Juarez has received message and will plan on endoscopy on October 18 with planned colonoscopy. 2. Consider repeat testing CBC to ensure continued hemoglobin and hematocrit stability. 3. No other specific labs or vitals that need followup. Reasons to return to the hospital including, but not limited to, recurrent or worsening symptom, shortness of breath, chest pain, nausea, vomiting, lightheadedness, loss of consciousness, near loss of consciousness, fevers, chills, night sweats, blood in his stool or dark black stools, vomiting of blood or bleeding from any source, inability to obtain or tolerating medications were discussed with the patient and his . They acknowledged understanding. TIME SPENT: Greater than 1 hour was spent on the discharge of this patient; greater than half was spent [id number] with the patient and his . [id number]/[facility] #: [id number] [place]
== END 2016-10-06 17:00 | disposition home or self-care (01) | DRG 336 ==
LOC: ED 15:49 → MED 21:20
PROVIDERS: ADMIT Internal Medicine; ATTEND Internal Medicine
PROC: 0D9670Z Drainage of Stomach with Drainage Device, Via Natural or Artificial Opening (ICD-10-PCS; 2016-10-02)
PROC: 0DN84ZZ Release Small Intestine, Percutaneous Endoscopic Approach (ICD-10-PCS; principal; 2016-10-04 14:15)
DX: K56.5 Intestinal adhesions [bands] with obstruction (postinfection) (principal); K92.2 Gastrointestinal hemorrhage, unspecified; F03.90 Unspecified dementia, unspecified severity, without behavioral disturbance, psychotic disturbance, mood disturbance, and anxiety; I48.91 Unspecified atrial fibrillation; I10 Essential (primary) hypertension; Z96.659 Presence of unspecified artificial knee joint; I87.2 Venous insufficiency (chronic) (peripheral); R09.02 Hypoxemia; K57.10 Diverticulosis of small intestine without perforation or abscess without bleeding; Z88.1 Allergy status to other antibiotic agents; Z79.01 Long term (current) use of anticoagulants; Z79.899 Other long term (current) drug therapy; Z82.3 Family history of stroke; Z87.891 Personal history of nicotine dependence; Z86.711 Personal history of pulmonary embolism
CPT/HCPCS: 36415; 71010; 71020; 74020; 74177; 80048; 80053; 81003; 82271; 83605; 83690; 83735; 85014; 85018; 85025; 86140; 93005; 94760; A9270-GY; J0330; J0690; J0780; J1100; J1170; J1644; J2250; J2270; J2405; J2704; J3010; Q9967

== ENCOUNTER 2020-01-02 20:24 | Inpatient (IN) ==
[2020-01-02] MEDS ORDERED: Ondansetron 4 mg VIAL 2 MG/ML 2 ml VIAL IV PRN (22:05)
[2020-01-02] MEDS: NS 0.9% 1000 ml BAG 1,000 ML IV SCH (22:30)
[2020-01-02 23:08] LABS: ABS Lymphocytes 0.7 10^3/ul (1.0-4.8); ABS Monocytes 0.6 10^3/ul (0-0.8); ABS Neutrophils 7.7 10^3/ul (1.5-7.7); Hematocrit 39 % (42-52); Hemoglobin 13.5 g/dL (14.0-18.0); Lymphocyte % 7.9 %; Mean Corpuscular HGB Conc 35 g/dL (31-36); Mean Corpuscular Hemoglobin 34 pg (27-31); Mean Corpuscular Volume 97 fL (80-94); Mean Platelet Volume 7.8 fL (7.4-10.4); Platelet Count 193 10^3/uL (150-450); Red Cell Distribution Width 15 % (10-15)
[2020-01-02 23:23] LABS: Albumin 3.2 g/dL (3.2-5.2); Albumin/Globulin Ratio 1.3 (1-3); Calcium 7.9 mg/dL (8.6-10.3); EGFR African American 107.1 (>60); EGFR Non-African American 88.5 (>60); Globulin 2.4 g/dL (2-4); Potassium 3.7 mmol/L (3.5-5.0); Total Bilirubin 0.5 mg/dL (0.2-1.0); Total Protein 5.6 g/dL (6.4-8.9)
[2020-01-03] MEDS: Mometasone 220 MCG MDI INH SCH ×2 (00:04→17:35)
[2020-01-03] MEDS: NS 0.9% 1000 ml BAG 1,000 ML IV SCH ×3 (05:07→17:38)
[2020-01-03 06:35] LABS: ABS Lymphocytes 0.8 10^3/ul (1.0-4.8); ABS Monocytes 0.7 10^3/ul (0-0.8); Eosinophil % 0.7 %; Hematocrit 37 % (42-52); Hemoglobin 12.8 g/dL (14.0-18.0); Lymphocyte % 12.3 %; Mean Corpuscular HGB Conc 35 g/dL (31-36); Mean Corpuscular Hemoglobin 34 pg (27-31); Mean Corpuscular Volume 97 fL (80-94); Mean Platelet Volume 7.7 fL (7.4-10.4); Platelet Count 172 10^3/uL (150-450); Red Blood Count 3.75 10^6 /uL (4.18-5.48); Red Cell Distribution Width 15 % (10-15); White Blood Count 6.6 10^3/uL (3.5-10.8)
[2020-01-03 06:42] LABS: Activated Partial Thrombo Time 34.4 seconds (26.0-38.0); INR 1.35 (0.82-1.09)
[2020-01-03 06:48] LABS: Albumin 3.1 g/dL (3.2-5.2); Albumin/Globulin Ratio 1.4 (1-3); Calcium 7.8 mg/dL (8.6-10.3); EGFR African American 107.1 (>60); EGFR Non-African American 88.5 (>60); Globulin 2.2 g/dL (2-4); Potassium 3.4 mmol/L (3.5-5.0); Total Bilirubin 0.6 mg/dL (0.2-1.0); Total Protein 5.3 g/dL (6.4-8.9)
[2020-01-03] MEDS ORDERED: Metoprolol Tartrate 5 mg VIAL 5 ml VIAL (1 mg/ml) IV PRN (09:45)
[2020-01-04] MEDS: NS 0.9% 1000 ml BAG 1,000 ML IV SCH ×2 (00:41→08:04)
[2020-01-04 11:30] VITALS: BP 150/85
== END 2020-01-04 15:47 | disposition home or self-care (01) | DRG 390 ==
LOC: SSU 20:24
PROVIDERS: ADMIT Internal Medicine; ATTEND Internal Medicine